=== PATIENT | male | born 1935 | race Caucasian/White ===

== ENCOUNTER 2018-03-09 07:50 | Day surgery (SDC) | payer MEDICARE ==
[~2018-03-09] VITALS: Ht 157.5 cm; Wt 65.8 kg
[~2018-03-09 07:50] MED LIST: BUDESONIDE0.5 MG/2 M INH; IPRAT-ALBUT 0.5-3 ML INH; PEPCID40 MG PO
--- NOTE | 2018-03-09 11:27 | NUR ---
03/09/18 1127 Amy Hatch 1117 PT ARRIVED IN PACU SLEEPY WITH NO C/O'S. ABD SOFT AND PASSING FLATUS. 1125 OXYGEN DECREASED TO 2L VIA NC WITH SATS 95%.
--- NOTE | 2018-03-10 07:25 | OR ---
[facility] [address] [place], [place] [address] Signed DATE OF OPERATION: 03/09/2018 SURGEON: Avery Stallworth MD UPPER AND LOWER ENDOSCOPY REPORTS PREOPERATIVE DIAGNOSES: 1. Hiatal hernia with acid reflux. 2. Recurrent aspiration pneumonia with scarred lung. 3. Esophageal dysphagia. 4. History of peptic ulcer disease. 5. History of diarrhea, black stool. 6. Unspecified cecal mass on CT/PET scan. POSTOPERATIVE DIAGNOSES: 1. Wwsflfcw-lw-gikjj hiatal hernia. 2. Mild diffuse gastritis. 3. A 5 mm polyp, proximal transverse colon. 4. A 4 mm polyps x2, proximal right colon. 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 6. 7 mm polyps x2, mid transverse colon. 7. 5 mm polyps at 45 cm. 8. Pandiverticulosis (left greater than right). PROCEDURES PERFORMED: 1. EGD with CLOtest and biopsies of the duodenum, pyloric bulb, antrum, and GE junction. 2. Colonoscopy with snare polypectomy and hot biopsies. ESTIMATED BLOOD LOSS: None. INDICATIONS: Joshua is an 82-year-old gentleman, who apparently has lived in [place], [facility], and even in [place]. It sounds like over the years, he developed progressive shortness of breath and dyspnea on exertion. There was some consideration for COPD. However, he was found to have a aodyglgt-ue-tynof hiatal hernia. It was felt that he probably is having recurrent aspirations and possibly pneumonia with scarred lung. As a result, his daughter was inquiring about the hiatal hernia and whether it could be surgically repaired. Family is very familiar with Dr. Nikunj Miller at [facility]. Dr. Miller is an expert in his field and has done Electronically Signed By: AVERY STALLWORTH MD 03/10/18 0725 PATIENT NAME: JOSHUA SANDOVAL OPERATIVE REPORT DATE OF : 31 REPORT #: [id number] PHYSICIAN: AVERY STALLWORTH MD PCP: SPIKE REEVES MD REPORT IS CONFIDENTIAL AND NOT TO BE RELEASED WITHOUT AUTHORIZATION [facility] [address] [place], [place] [address] Signed excellent job for a number of our patients. In the meantime, Joshua had a PET scan done by the children's book author for a stable nodule in his lung. In the cecum, there was a 2.2 x 1.5 cm mass that lit up, he was therefore asked to see me as a local General Surgeon for both upper and lower endoscopy. In the office, I met with Joshua and his daughter. Joshua overall was in decent shape, taking all things into consideration and he has moderate functional status. I explained to Joshua I think at our small hospital we could certainly help him with upper and lower endoscopy. I gave him pamphlets on both, and we reviewed that in detail. He understands the nature of the 2 tests along with the risks including, but not limited to gas bloating, crampy abdominal pain, bleeding, perforation, requiring surgery, and missed diagnosis. Also, because of Joshua's advanced age and medical issues, particularly his pulmonary issues. We did ask an Anesthesia provider to help us with increased monitoring and sedation with propofol. They had expressed understanding and wished to proceed. PROCEDURE NOTE: Joshua was taken into our endoscopy suite and placed in the supine semi-recumbent position. He was given monitored anesthesia care with propofol per our nurse mission support specialist. The posterior oropharynx was anesthetized with Hurricaine spray. A bite block was utilized for the case. The adult gastroscope was introduced and advanced out into the third portion of the duodenum under direct visualization of camera. I encountered his hiatal hernia, rather quickly coming down the esophagus and it raises the suspicion of a large hiatal hernia. Because of his history of diarrhea, I took a biopsy out of his duodenum. He had just a little irritation in the pyloric channel and in the stomach itself. Consequently, we took biopsies in both pyloric bulb and antrum. We also took a biopsy of the antrum for CLOtest. Upon retroflexion of the scope, he does have a vxfxumoc-tr-wnbts hiatal hernia. No evidence of any volvulus. There is no gastric or esophageal varices. No ulcerations. I withdrew the scope back into a large hiatal hernia and there was some irritation, but no obvious Laya-Acuna tear or source of bleeding. We did not measure out his hiatal hernia on this occasion. We were having some trouble with quite a bit of secretions and maintaining his airway during the procedure. I can see that his GE junction was mildly disrupted. We went ahead and took a quick biopsy at that area. The middle and upper esophagus were unremarkable. After this, the gas was suctioned out and the gastroscope was removed. Overall, Joshua tolerated the procedure well. Joshua was then rotated into the left lateral decubitus position. He was maintained on IV sedation with propofol per our nurse mission support specialist. A digital rectal exam was performed, this was unremarkable. He has a little induration to his prostate. The one at the left side is a little more prominent than the right. The adult colonoscope was introduced and advanced through a relatively small narrow sigmoid colon and finally arrived into the cecum itself. 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 It was somewhat difficult the biopsy because of the angle. We spent some time there, taking Electronically Signed By: AVERY STALLWORTH MD 03/10/18 2294 PATIENT NAME: JOSHUA SANDOVAL OPERATIVE REPORT DATE OF : 31 REPORT #: [id number] PHYSICIAN: AVERY STALLWORTH MD PCP: SPIKE REEVES MD REPORT IS CONFIDENTIAL AND NOT TO BE RELEASED WITHOUT AUTHORIZATION [facility] [address] [place], [place] [address] Signed several biopsies and several pictures to document his tumor. It is obviously concerning for cancer. He also had various polyps throughout the rest of the colon, we removed those with the help of hot biopsy forceps and snare. We noticed that he had a few diverticula in his right colon, but most of his diverticula were in the left and sigmoid colon; they were moderate in size, moderate in number, and scattered about. The rectum itself was unremarkable. Joshua is a slight of build and I really did not have room enough to retroflex the scope in his small rectum. It looks like he has some routine internal hemorrhoid tissue as the scope was withdrawn. After this, the gas was suctioned out. The colonoscope was removed. Joshua tolerated the procedure quite well. RECOMMENDATIONS: I will see Joshua back in my office in 7 to 14 days to review his results. We will have to talk in detail about the cecal tumor. Avery Stallworth MD ALB/MODL /[id number] cc: MD Avery Cotto MD Malcolm Townsley, MD Copies: TASHIA HAQ MD,SPIKE DC MD, MD ~ Electronically Signed By: AVERY STALLWORTH MD 03/10/18 0725 PATIENT NAME: JOSHUA SANDOVAL OPERATIVE REPORT DATE OF : 31 REPORT #: [id number] PHYSICIAN: AVERY STALLWORTH MD PCP: SPIKE REEVES MD REPORT IS CONFIDENTIAL AND NOT TO BE RELEASED WITHOUT AUTHORIZATION
[2018-03-10] MEDS ORDERED: BROVANA15 MCG/2 M INH (11:38)
== END 2018-03-09 12:00 | disposition home or self-care (01) ==
LOC: OPS 07:50 → DS 07:50 → OPS 08:30
PROVIDERS: Colon & Rectal Surgery
PROC: 0DBE8ZZ Excision of Large Intestine, Via Natural or Artificial Opening Endoscopic (ICD-10-PCS; 2018-03-09)
PROC: 0DBL8ZZ Excision of Transverse Colon, Via Natural or Artificial Opening Endoscopic (ICD-10-PCS; 2018-03-09)
PROC: 0DB98ZX Excision of Duodenum, Via Natural or Artificial Opening Endoscopic, Diagnostic (ICD-10-PCS; 2018-03-09)
PROC: 0DB78ZX Excision of Stomach, Pylorus, Via Natural or Artificial Opening Endoscopic, Diagnostic (ICD-10-PCS; 2018-03-09)
PROC: 0DB48ZX Excision of Esophagogastric Junction, Via Natural or Artificial Opening Endoscopic, Diagnostic (ICD-10-PCS; 2018-03-09)
PROC: 0DBK8ZZ Excision of Ascending Colon, Via Natural or Artificial Opening Endoscopic (ICD-10-PCS; principal; 2018-03-09 09:30)
PROC: 0DBH8ZZ Excision of Cecum, Via Natural or Artificial Opening Endoscopic (ICD-10-PCS; 2018-03-09 09:30)
DX: D12.2 Benign neoplasm of ascending colon (principal); D12.3 Benign neoplasm of transverse colon; D12.6 Benign neoplasm of colon, unspecified; K29.50 Unspecified chronic gastritis without bleeding; K29.80 Duodenitis without bleeding; K57.30 Diverticulosis of large intestine without perforation or abscess without bleeding; K44.9 Diaphragmatic hernia without obstruction or gangrene; I25.10 Atherosclerotic heart disease of native coronary artery without angina pectoris; J44.9 Chronic obstructive pulmonary disease, unspecified; K21.0 Gastro-esophageal reflux disease with esophagitis; F32.9 Major depressive disorder, single episode, unspecified; Z79.899 Other long term (current) drug therapy
CPT/HCPCS: 86677; J2704; J7120

== ENCOUNTER 2018-03-09 14:18 | Observation (INO) | payer MEDICARE ==
[~2018-03-09] VITALS: Ht 157.5 cm; Wt 65.5 kg
--- OUTSIDE RECORDS SUMMARY | ~2018-03-09 | XMS | Clinical Summary ---
Demographics + + + | Address | [address] | | | [place] [address] | + + + | Home Phone | | + + + | Preferred Language | Unknown | + + + | Marital Status | | + + + | Muslim Affiliation | 1001 | + + + | Race | Unknown | + + + | Ethnic Group | Unknown | + + + Author + + + | Author | [facility] | + + + | Organization | [facility] | + + + | Address | Unknown | + + + | Phone | Unavailable | + + + Support + + +---------+ + | Name | Relationship | Address | Phone | + + +---------+ + | Jackie Silva | ECON | Unknown | | + + +---------+ + Care Team Providers + +------+ + | Care Logistics Engineer Name | Role | Phone | + +------+ + | Cy Suarez MD | PP | | + +------+ + Allergies No Known Allergies Current Medications + + + +---------+------+------+-------+ | Prescription | Sig. | Disp. | Refills | Star | End | Statu | | | | | | t | Date | s | | | | | | Date | | | + + + +---------+------+------+-------+ | ascorbic acid | Take 500 mg by mouth | | | | | Activ | | (VITAMIN C) 500 MG | daily. | | | | | e | | tablet | | | | | | | + + + +---------+------+------+-------+ | Licorice, | Take by mouth. | | | | | Activ | | Glycyrrhiza glabra, | | | | | | e | | (LICORICE ROOT PO) | | | | | | | + + + +---------+------+------+-------+ | famotidine | Take 40 mg by mouth | | | | | Activ | | (PEPCID) 40 MG | daily. | | | | | e | | tablet | | | | | | | + + + +---------+------+------+-------+ | DANDELION PO | Take by mouth. | | | | | Activ | | | | | | | | e | + + + +---------+------+------+-------+ | Nebulizer (medical | Please provide | 1 each | 0 | 07/2 | | Activ | | device)Indications: | Nebulizer machine, | | | 0/20 | | e | | COPD, moderate | tubing, and | | | 18 | | | | ([facility]) | mouthpiece. Pls send | | | | | | | | replacement tubing | | | | | | | | every three months. | | | | | | | | Refill for tubing, | | | | | | | | filter and | | | | | | | | mouthpiece #6 | | | | | | + + + +---------+------+------+-------+ | | Take 3 mLs by | 360 mL | 5 | 07/2 | | Activ | | ipratropium-albutero | nebulization every 6 | | | 0/20 | | e | | l (DUO-NEB) 0.5-2.5 | (six) hours as | | | 18 | | | | mg/3mLIndications: | needed (wheezing or | | | | | | | COPD, moderate (HCC) | cough). | | | | | | + + + +---------+------+------+-------+ | arformoterol | Take 2 mLs by | 120 mL | 11 | 07/3 | | Activ | | (BROVANA) 15 MCG/2ML | nebulization 2 (two) | | | 0/20 | | e | | NEBUIndications: | times daily. | | | 18 | | | | COPD, moderate (HCC) | | | | | | | + + + +---------+------+------+-------+ | budesonide | Take 2 mLs by | 120 mL | 5 | 07/3 | 07/3 | Activ | | (PULMICORT) 0.5 | nebulization 2 (two) | | | 0/20 | 0/20 | e | | MG/2ML nebulizer | times daily. | | | 18 | 19 | | | suspensionIndication | | | | | | | | s: COPD, moderate | | | | | | | | (HCC) | | | | | | | + + + +---------+------+------+-------+ | Oxygen (outpatient | Inhale into the | | | | | Activ | | therapy) | lungs. For sleep | | | | | e | | | only | | | | | | + + + +---------+------+------+-------+ Active Problems + + + | Problem | Noted Date | + + + | Nocturnal hypoxemia | 01/17/2018 | + + + | COPD, moderate (HCC) | 01/17/2018 | + + + | Narrowing of airway | 01/17/2018 | + + + | Hiatal hernia | 01/17/2018 | + + + | Pulmonary hypertension (HCC) | 01/17/2018 | + + + | Reactive airway disease | 01/07/2018 | + + + | Shortness of breath | 02/26/2017 | + + + | Wheezing | 02/26/2017 | + + + | Incidental pulmonary nodule, greater than or equal to 8mm | 02/26/2017 | + + + | Asbestos exposure | 02/26/2017 | + + + | Closed fracture of multiple ribs of left side | 10/16/2016 | + + + + + | Overview: Overview: 6-12Last Assessment & Plan: A: | | Left-sided, multiple with probable pulmonary contusion and small | | hemothorax noted on CT of his chest, again on 10/20. Shift Engineer | | did not recommend draining the hemothorax and IR consulted on 10/19 | | and agreed. Patient has declined epidural.P: Continues on | | oxycodone. | + + + + + | Lumbar transverse process fracture, closed, initial encounter | 10/16/2016 | | (BRANDI) | | + + + + + | Overview: Overview: | | Left 1-4, right 1-3 | | | | Last Assessment & Plan: | | A: Traumatic, multiple lumbar transverse process fractures. | | P: In corset, Trauma managing. | + + + + + | Spleen injury | 10/16/2016 | + + + + + | Overview: Overview: Grade ILast Assessment & Plan: A: | | Traumatic, Grade 1, associated with psoas hematoma. P: Repeat CT | | 10/25, pending. Conservative management. Trauma following. | |Last Assessment & Plan: | |A: Traumatic, Grade 1, associated with psoas hematoma. | |P: Repeat CT 10/25, pending. Conservative management. Trauma following. | + + + + + | Cataracts, bilateral | 08/08/2013 | + + + Encounters +--------+ + + + + | Date | Type | Specialty | Care Team | Description | +--------+ + + + + | 02/02/ | Office | | Ruslan, | COPD, moderate (HCC) | | 2018 | Visit | | Candice Han, | (Primary Dx); | | | | | MD | Narrowing of airway; | | | | | | Incidental | | | | | | pulmonary nodule, | | | | | | greater than or | | | | | | equal to 8mm; | | | | | | Asbestos exposure; | | | | | | Nocturnal hypoxemia; | | | | | | Hiatal hernia | +--------+ + + + + | 01/26/ | Telephone | | Verito Oleary RN | | | 2017 | | | | | +--------+ + + + + | 01/25/ | Hospital | | [facility]lan, | Endobronchial mass | | 2018 | Encounter | | Candice Han, | | | | | | MD | | +--------+ + + + + | 01/24/ | Documentati | | Verito Oleary RN | | | 2017 | on Only | | | | +--------+ + + + + | 01/24/ | Telephone | | Verito Oleary RN | | | 2017 | | | | | +--------+ + + + + | 01/18/ | Documentati | | Cristina Starks, | Other (Respiratory | | 2018 | on Only | | DRAMA PROFESSOR | Therapy form) | +--------+ + + + + | 01/17/ | Office | | Ruslan, | COPD, moderate (HCC) | | 2018 | Visit | | Candice Han, | (Primary Dx); | | | | | MD | Endobronchial mass; | | | | | | Narrowing of airway; | | | | | | Incidental | | | | | | pulmonary nodule, | | | | | | greater than or | | | | | | equal to 8mm; | | | | | | Asbestos exposure; | | | | | | Pulmonary | | | | | | hypertension (HCC); | | | | | | Nocturnal hypoxemia; | | | | | | Hiatal hernia | +--------+ + + + + | 01/17/ | Documentati | | Verito Oleary RN | | | 2018 | on Only | | | | +--------+ + + + + | 01/17/ | Documentati | | Cristina Starks, | Other (3 step) | | 2018 | on Only | | DRAMA PROFESSOR | | +--------+ + + + + | 01/11/ | Telephone | | Verito Oleary RN | | | 2018 | | | | | +--------+ + + + + 01/10/ | Hospital | | [facility]lan, | Pulmonary nodule; | | 2018 | Encounter | | Candice Han, | Asbestos exposure | | | | | MD | | +--------+ + + + + | 01/07/ | Office | | [facility]lan, | COPD, moderate (HCC) | | 2018 | Visit | | Candice Han, | (Primary Dx); | | | | | MD | Pulmonary nodule; | | | | | | Asbestos exposure | +--------+ + + + + from Last 3 Months Family History + + +------+ + | Medical History | Relation | Name | Comments | + + +------+ + | Cancer | Mother | | breast | + + +------+ + | Heart disease | Neg Hx | | | + + +------+ + | Stroke | Neg Hx | | | + + +------+ + + +------+--------+ + | Relation | Name | Status | Comments | + +------+--------+ + | Mother | | | | + +------+--------+ + Social History + +-------+ +--------+------+ | Tobacco Use | Types | Packs/Day | Years | Date | | | | | Used | | + +-------+ +--------+------+ | Never Smoker | | | | | + +-------+ +--------+------+ + +---+---+---+ | Smokeless Tobacco: | | | | | Never Used | | | | + +---+---+---+ + + +---------+ + | Alcohol Use | Drinks/We | oz/Week | Comments | | | ek | | | + + +---------+ + | No | | | | + + +---------+ + + + + | Sex Assigned at | Date Recorded | | | | + + + | Not on file | | + + + Last Filed Vital Signs + + + + | Vital Sign | Reading | Time Taken | + + + + | Blood Pressure | 132/73 | 02/02/2018 3:06 PM PDT | + + + + | Pulse | 69 | 02/02/2018 3:06 PM PDT | + + + + | Temperature | 36.4 C (97.5 F) | 02/02/2018 3:06 PM PDT | + + + + | Respiratory Rate | 24 | 02/26/2017 10:20 AM PDT | + + + + | Oxygen Saturation | 96% | 02/02/2018 3:06 PM PDT | + + + + | Inhaled Oxygen | - | - | | Concentration | | | + + + + | Weight | 65.4 kg (144 lb 3.2 | 02/02/2018 3:06 PM PDT | | | oz) | | + + + + | Height | 157.5 cm (5' 2") | 02/02/2018 3:06 PM PDT | + + + + | Body Mass Index | 26.37 | 02/02/2018 3:06 PM PDT | + + + + Plan of Treatment +--------+---------+ + + + | Date | Type | Specialty | Care Team | Description | +--------+---------+ + + + | 04/06/ | Office | | [place]lan, | | | 2018 | Visit | | Candice Han, | | | | | | MD [address] | | | | | | [place] [address] | | | | | | [phone] | | | | | | | | +--------+---------+ + + + + + + + + | Health Maintenance | Due Date | Last Done | Comments | + + + + + | Vaccine: | | | | | Dtap/Tdap/Td (1 - | 3 | | | | Tdap) | | | | + + + + + | Vaccine: Zoster (1 | | | | | of 2) | 4 | | | + + + + + | Vaccine: | | | | | Pneumococcal 65+ | 9 | | | | Low/Medium Risk (1 | | | | | of 2 - PCV13) | | | | + + + + + | Vaccine: Influenza | | | | | (#1) | 8 | | | + + + + + Procedures + +--------+ + + + | Procedure Name | Priori | Date/Time | Associated Diagnosis | Comments | | | ty | | | | + +--------+ + + + | PET CT TUMOR | Routin | 01/25/2018 | Endobronchial mass | Results for this | | LOCALIZATION INITIAL | e | 12:25 PM | | procedure are in the | | - [facility] | | PDT | | results section. | + +--------+ + + + | POCT GLUCOSE | Routin | 01/25/2018 | | Results for this | | | e | 10:34 AM | | procedure are in the | | | | PDT | | results section. | + +--------+ + + + | CT CHEST WO CONTRAST | STAT | 01/10/2018 | Pulmonary nodule | Results for this | | | | 4:40 PM | Asbestos exposure | procedure are in the | | | | PDT | | results section. | + +--------+ + + + from Last 3 Months Results PET Initial [facility] (01/25/2018 12:25 PM) + + + | Impressions | Performed At | + + + | 1. 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 | [facility] | | 2. The suspected focal narrowing at the origin of the right upper | RADIOLOGY | | lobe bronchus is not well-defined on CT images, without associated | | | focal uptake. 3. Partially calcified/calcified hilar, mediastinal, | | | distal periesophageal lymph nodes, with variable uptake throughout | | | the hilar mediastinal regions, SUV up to 11.0 in the right hilum. This | | | is probably related to granulomatous disease. The uptake is not | | | specific. Correlate clinically. 4. Focal intense uptake in the | | | posterior cecum measuring 2.2 x 1.5 cm, suspicious for cecal neoplasm. | | | Colonoscopy is recommended. 5. Subtle left pleural effusion. | | | 6. Moderate hiatal hernia. | | + + + + + + | Narrative | Performed At | + + + | [facility] 1935 01/25/2018 12:[address] TUMOR | [facility] | | LOCALIZATION INITIAL - [facility] HISTORY: Endobronchial mass. | RADIOLOGY | | COMPARISON: CT chest 01/10/18, 03/05/17 TECHNIQUE: Serum blood | | | sugar 84 mg/dL. Fused PET/CT scans were obtained from the skull | | | base through the thighs at 71 minutes post injection of 12.7 | | | millicuries F18 fluorodeoxyglucose. CT images are for localization | | | only, and not for diagnostic purposes. FINDINGS: Collapse of the | | | right middle lobe again noted. No associated abnormal uptake. The | | | suspected narrowing of the right upper lobe bronchus origin sequence 4 | | | image 83 shows no defined focal associated uptake, but with adjacent | | | uptake in hilar and mediastinal lymph nodes. Mild uptake | | | throughout the hilar and mediastinal regions with associated partially | | | calcified lymph nodes, for example: 1. Subcarinal lymph node with | | | central maryam-like calcification image 86 sequence 4 measuring 1.7 x | | | 0.9 cm, SUV 9.7. 2. Left inferior left mainstem densely calcified | | | lymph node measuring 1.7 x 1.0 cm image 87, without uptake. | | | 3. Left prevascular lymph node image 82 measuring 2.4 x 1.1 cm with | | | central maryam-like and 8mm nodular calcification, SUV 8.0. | | | 4. Right precarinal centrally calcified lymph node image 82 | | | measuring 2.0 x 1.3 cm, SUV 6.9. 5. Left hilar partially calcified | | | lymph nodes, poorly defined on CT, SUV up to 8.1. 6. Right hilar | | | predominately noncalcified lymph nodes, with most intense uptake just | | | inferior to the right upper lobe lesion, SUV 11.0, measuring 2.0 cm AP | | | by 1.2 cm transverse on the PET scan. 7. AP window lymph node | | | sequence 4 image 79 measuring 1.5 x 0.7 cm, noncalcified, SUV 8.3. | | | Subtle left pleural effusion without uptake. Minimal dependent | | | density in the posterior aspects of both upper lobes. Calcified distal | | | periesophageal lymph nodes above the GE junction without uptake for | | | example sequence 4 image 111 measuring 7 x 5 mm, image 114 measuring 4 | | | x 3 mm. Small to moderate hiatal hernia. No abnormal uptake in | | | the abdomen. Nodular intense uptake in the cecum posteriorly | | | measuring 2.2 x 1.5 cm sequence 3 image 177, probably with associated | | | wall thickening of the posterior cecum on CT. Colonoscopy is | | | recommended to exclude colonic neoplasm at the cecal apex. There are a | | | few right lower quadrant mesenteric lymph nodes, all measuring less | | | than 5 mm, without uptake. Advanced sigmoid diverticulosis and | | | mild descending colonic diverticulosis with scattered uptake. Bone | | | windows show mild spondylotic changes of the spine. Moderately | | | advanced bilateral glenohumeral degenerative change with only mild | | | uptake. | | + + + + + | Procedure Note | + + | Kingston, Leonardo Results In - 01/25/2018 1:09 PM PDT JOSH [id number]/12/2017 12:25 | | PMPET CT TUMOR LOCALIZATION INITIAL - TORSOHISTORY: Endobronchial mass.COMPARISON: CT | | chest 01/10/18, 03/05/17TECHNIQUE:Serum blood sugar 84 mg/dL. Fused PET/CT scans were | | obtained from the skull base through the thighs at 71 minutes post injection of 12.7 | | millicuries F18 fluorodeoxyglucose. CT images are for localization only, and not for | | diagnostic purposes.FINDINGS:Collapse of the right middle lobe again noted. No | | associated abnormal uptake.The suspected narrowing of the right upper lobe bronchus | | origin sequence 4 image 83 shows no defined focal associated uptake, but with adjacent | | uptake in hilar and mediastinal lymph nodes.Mild uptake throughout the hilar and | | mediastinal regions with associated partially calcified lymph nodes, for example:1. | | Subcarinal lymph node with central maryam-like calcification image 86 sequence 4 | | measuring 1.7 x 0.9 cm, SUV 9.7.2. Left inferior left mainstem densely calcified lymph | | node measuring 1.7 x 1.0 cm image 87, without uptake.3. Left prevascular lymph node | | image 82 measuring 2.4 x 1.1 cm with central maryam-like and 8mm nodular calcification, | | SUV 8.0.4. Right precarinal centrally calcified lymph node image 82 measuring 2.0 x 1.3 | | cm, SUV 6.9.5. Left hilar partially calcified lymph nodes, poorly defined on CT, SUV | | up to 8.1.6. Right hilar predominately noncalcified lymph nodes, with most intense | | uptake just inferior to the right upper lobe lesion, SUV 11.0, measuring 2.0 cm AP by | | 1.2 cm transverse on the PET scan.7. AP window lymph node sequence 4 image 79 measuring | | 1.5 x 0.7 cm, noncalcified, SUV 8.3.Subtle left pleural effusion without uptake. | | Minimal dependent density in the posterior aspects of both upper lobes. Calcified distal | | periesophageal lymph nodes above the GE junction without uptake for example sequence 4 | | image 111 measuring 7 x 5 mm, image 114 measuring 4 x 3 mm.Small to moderate hiatal | | hernia. No abnormal uptake in the abdomen.Nodular intense uptake in the cecum | | posteriorly measuring 2.2 x 1.5 cm sequence 3 image 177, probably with associated wall | | thickening of the posterior cecum on CT. Colonoscopy is recommended to exclude colonic | | neoplasm at the cecal apex. There are a few right lower quadrant mesenteric lymph nodes, | | all measuring less than 5 mm, without uptake.Advanced sigmoid diverticulosis and mild | | descending colonic diverticulosis with scattered uptake.Bone windows show mild | | spondylotic changes of the spine. Moderately advanced bilateral glenohumeral | | degenerative change with only mild uptake.IMPRESSION:1. Chronic collapse of the right | | middle lobe without uptake.2. The suspected focal narrowing at the origin of the right | | upper lobe bronchus is not well-defined on CT images, without associated focal uptake.3. | | Partially calcified/calcified hilar, mediastinal, distal periesophageal lymph nodes, | | with variable uptake throughout the hilar mediastinal regions, SUV up to 11.0 in the | | right hilum. This is probably related to granulomatous disease. The uptake is not | | specific. Correlate clinically.4. Focal intense uptake in the posterior cecum measuring | | 2.2 x 1.5 cm, suspicious for cecal neoplasm. Colonoscopy is recommended.5. Subtle left | | pleural effusion.6. Moderate hiatal hernia. | |2. The suspected focal narrowing at the origin of the right upper lobe bronchus is not wel l-defined on CT images, without associated focal uptake. | |3. Partially calcified/calcified hilar, mediastinal, distal periesophageal lymph nodes, wi th variable uptake throughout the hilar mediastinal regions, SUV up to 11.0 in the right hil um. This is probably | |related to granulomatous disease. The uptake is not specific. Correlate clinically. | |4. Focal intense uptake in the posterior cecum measuring 2.2 x 1.5 cm, suspicious for ceca l neoplasm. Colonoscopy is recommended. | |5. Subtle left pleural effusion. | |6. Moderate hiatal hernia. | | | | | + + + + + + + | Performing | Address | City/State/Zipcode | Phone Number | | Organization | | | | + + + + + | [facility] | [address] | [place] [address] | | + + + + + POCT glucose (01/25/2018 10:34 AM) + + + + + | Component | Value | Ref Range | Performed At | + + + + + | GLUCOSE,POC SCREEN | 84Comment: Testing | 65 - 99 mg/dL | [facility] | | | performed at [facility];[address] | | | | [address];[place] | | | | | [address] | | | + + + + + + + + + + | Performing | Address | City/State/Zipcode | Phone Number | | Organization | | | | + + + + + | [facility] | [address] | [place] [address] | | + + + + + CT chest without contrast (01/10/2018 4:40 PM) + + + | Impressions | Performed At | + + + | 1. Right upper lobe pulmonary nodule measuring approximately 8 x | [facility] | | 7 mm, similar to CT dated 03/05/2017. Given presence of small | RADIOLOGY | | calcifications, this could represent granuloma or hamartoma. Recommend | | | attention on follow-up chest CT scan in 9-12 months. 2. Chronic | | | collapse of the right middle lobe with occlusion of right middle lobe | | | bronchus, similar to prior CT. Similar narrowing of right upper lobe | | | bronchus. Recommend bronchoscopy for further evaluation. | | | 3. Enlarged pulmonary trunk suggesting pulmonary artery | | | hypertension. 4. Multiple calcified mediastinal lymph nodes, | | | likely sequel of remote granulomatous disease. 5. Sclerotic lesion | | | in left seventh rib measuring 10 x 7 mm, similar to prior CT. | | | 6. Moderate coronary artery atherosclerosis. 7. Large hiatal | | | hernia. 8. Additional incidental findings as detailed above. | | | | | + + + + + + | Narrative | Performed At | + + + | JOSH MATTHEWS CT CHEST WO CONTRAST 01/10/2018 4:40 PM HISTORY: | [facility] | | 82 years. Male. Follow-up pulmonary nodule. TECHNIQUE: | RADIOLOGY | | 5-mm axial images were acquired through the chest without | | | contrast. Axial 5 mm reconstructions with a lung algorithm, axial | | | 1.25 mm reconstructions, coronal 2 mm reconstructions and axial 8 mm | | | MIP reconstructions were performed. Dose reduction techniques were | | | used including automated exposure control (AEC), iterative | | | reconstruction technique, and/or mA and/or kV dose adjustments based | | | on patient size. COMPARISON: 03/05/2017. Limitations: | | | Respiratory motion artifacts. FINDINGS: Normal thyroid. | | | Left-sided 3 vessel aortic arch. Aortic atherosclerosis including | | | atherosclerosis of major branch vessels. Moderate coronary artery | | | atherosclerosis. The maximum diameter of face and thoracic aorta | | | measures approximately 3.6 cm The pulmonary trunk measures | | | approximately 3 cm. Multiple calcified mediastinal and bilateral | | | hilar lymph nodes, probable sequel of remote 10 mm disease. Right | | | upper lobe pulmonary nodule measuring approximately 8 x 7 mm, image | | | 40/series 3 with small punctate calcifications, similar to CT dated | | | 03/05/2017. Right upper lobe pulmonary nodule measuring approximately 3 | | | mm, which 139/series 4, similar to prior CT. Calcified right lower | | | lobe pulmonary nodule abutting major fissure measuring approximately 5 | | | mm, image 101/series 4, similar to prior CT. Assessment limited | | | secondary to severe motion artifacts. Multiple additional small 2 to 3 | | | mm bilateral pulmonary nodules. Linear subsegmental | | | atelectasis or scarring in both lungs. There is narrowing of right | | | upper lobe bronchus, image 96/series 4, similar to prior CT. Chronic | | | complete collapse of the right middle lobe with occlusion of the right | | | middle lobe bronchus, similar to CT dated 03/05/2017. No pleural | | | effusion or pneumothorax. Osteopenia. 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 Osteopenia. | | | Thoracic spondylosis. Mild (2 mm) retrolisthesis of C6 on C7. Mild (2 | | | mm) anterolisthesis of C7 on T1. Multiple remote left rib fractures. | | | Sclerotic lesion in left seventh rib measuring approximately 10 x 7 | | | mm, image 75/series 3, similar to CT dated 03/05/2017. Large | | | hiatal hernia. Colonic diverticulosis. An exophytic hypodense lesion | | | arising from upper pole of the right kidney measuring approximately 8 | | | mm, image 215/series 4, incompletely characterized, similar to CT | | | dated 03/05/2017. | | + + + + + | Procedure Note | + + | Kingston, Rad Results In - 01/10/2018 5:05 PM PDT J[facility] GANDARA CHEST WO | | CONTRAST01/10/2018 4:40 PMHISTORY:82 years. Male. Follow-up pulmonary | | nodule.TECHNIQUE:5-mm axial images were acquired through the chest without contrast. | | Axial 5 mm reconstructions with a lung algorithm, axial 1.25 mm reconstructions, coronal | | 2 mm reconstructions and axial 8 mm MIP reconstructions were performed.Dose reduction | | techniques were used including automated exposure control (AEC), iterative | | reconstruction technique, and/or mA and/or kV dose adjustments based on patient | | size.COMPARISON:03/05/2017.Limitations: Respiratory motion artifacts.FINDINGS:Normal | | thyroid.Left-sided 3 vessel aortic arch. Aortic atherosclerosis including | | atherosclerosis of major branch vessels. Moderate coronary artery atherosclerosis. The | | maximum diameter of face and thoracic aorta measures approximately 3.6 cmThe pulmonary | | trunk measures approximately 3 cm.Multiple calcified mediastinal and bilateral hilar | | lymph nodes, probable sequel of remote 10 mm disease.Right upper lobe pulmonary nodule | | measuring approximately 8 x 7 mm, image 40/series 3 with small punctate calcifications, | | similar to CT dated 03/05/2017. Right upper lobe pulmonary nodule measuring approximately | | 3 mm, which 139/series 4, similar to prior CT. Calcified right lower lobe pulmonary | | nodule abutting major fissure measuring approximately 5 mm, image 101/series 4, similar | | to prior CT. Assessment limited secondary to severe motion artifacts. Multiple | | additional small 2 to 3 mm bilateral pulmonary nodules.Linear subsegmental atelectasis | | or scarring in both lungs. There is narrowing of right upper lobe bronchus, image | | 96/series 4, similar to prior CT. Chronic complete collapse of the right middle lobe | | with occlusion of the right middle lobe bronchus, similar to CT dated 03/05/2017.No | | pleural effusion or pneumothorax.Osteopenia. Severe bilateral glenohumeral | | osteoarthritis, right greater than left. Osteopenia. Thoracic spondylosis. Mild (2 mm) | | retrolisthesis of C6 on C7. Mild (2 mm) anterolisthesis of C7 on T1. Multiple remote | | left rib fractures.Sclerotic lesion in left seventh rib measuring approximately 10 x 7 | | mm, image 75/series 3, similar to CT dated 03/05/2017.Large hiatal hernia. Colonic | | diverticulosis. An exophytic hypodense lesion arising from upper pole of the right | | kidney measuring approximately 8 mm, image 215/series 4, incompletely characterized, | | similar to CT dated 03/05/2017.IMPRESSION:1. Right upper lobe pulmonary nodule measuring | | approximately 8 x 7 mm, similar to CT dated 03/05/2017. Given presence of small | | calcifications, this could represent granuloma or hamartoma. Recommend attention on | | follow-up chest CT scan in 9-12 months.2. 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 Similar narrowing of | | right upper lobe bronchus. Recommend bronchoscopy for further evaluation.3. Enlarged | | pulmonary trunk suggesting pulmonary artery hypertension.4. Multiple calcified | | mediastinal lymph nodes, likely sequel of remote granulomatous disease.5. Sclerotic | | lesion in left seventh rib measuring 10 x 7 mm, similar to prior CT.6. Moderate | | coronary artery atherosclerosis.7. Large hiatal hernia.8. Additional incidental | | findings as detailed above. | | PM | |Large hiatal hernia. Colonic diverticulosis. An exophytic hypodense lesion arising from upp er pole of the right kidney measuring approximately 8 mm, image 215/series 4, incompletely c haracterized, similar to CT dated 03/05/2017. | | | |IMPRESSION: | |1. Right upper lobe pulmonary nodule measuring approximately 8 x 7 mm, similar to CT dated 03/05/2017. Given presence of small calcifications, this could represent granuloma or hamart magda. Recommend attention on follow-up chest CT scan in 9-12 months. | |2. 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 Similar narrowing of right upper lobe bronchus. Recommend bronchoscopy for further evaluation. | |3. Enlarged pulmonary trunk suggesting pulmonary artery hypertension. | |4. Multiple calcified mediastinal lymph nodes, likely sequel of remote granulomatous disea se. | |5. Sclerotic lesion in left seventh rib measuring 10 x 7 mm, similar to prior CT. | |6. Moderate coronary artery atherosclerosis. | |7. Large hiatal hernia. | |8. Additional incidental findings as detailed above. | | | | | + + + + + + + | Performing | Address | City/State/Zipcode | Phone Number | | Organization | | | | + + + + + | [facility] | [address] | [place] [address] | | + + + + + from Last 3 Months Insurance + +--------+ +------+-------+ + | Payer | Benefi | Subscriber | Type | Phone | Address | | | t Plan | ID | | | | | | / | | | | | | | Group | | | | | + +--------+ +------+-------+ + | MEDICARE | MEDICA | [id number] | | | [address] | | | RE | | | | [place] [phone] | | | IP-OP | | | | | + +--------+ +------+-------+ + | [facility] | UNITED | [id number] | | | | | | | | | | | | | HEALTH | | | | | | | CARE - | | | | | | | AARP | | | | | + +--------+ +------+-------+ + + +--------+ +--------+ + + | Guarantor Name | Accoun | Relation to | Date | Phone | Billing Address | | | t Type | Patient | of | | | | | | | | | | + +--------+ +--------+ + + | JOSH MATTHEWS | Person | Self | [birth year] | Home: | [address] | | | al/Fam | | 1936 | [phone] | [place] [address] | | | mireya | | | [phone] | | + +--------+ +--------+ + +
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
--- OUTSIDE RECORDS SUMMARY | ~2018-03-09 | XMS | Encounter Summary ---
Demographics + + + | Address | [address] | | | [place] [address] | + + + | Home Phone | | + + + | Preferred Language | Unknown | + + + | Marital Status | | + + + | Synagogue Affiliation | 1001 | + + + | Race | Unknown | + + + | Ethnic Group | Unknown | + + + Author + + + | Author | [employer] [employer] | + + + | Organization [...] Team Providers + +------+ + | Care Repacker Name | Role | Phone | + [...] | Radiology | Diagnoses | Ruslan, | [facility] | | | | | | Candice | Nuclear | | | | | Endobronchia | MD Emely | Medicine [address] | | | | | l mass | [address] | [address] | | | | | Procedures | [address] | [address] | | | | | PET Initial | [place], | [place], [place] | | | | | [place] [facility] | [place] [address] | [address] Phone: | | | | | | Phone: | [phone] | | | | | | [phone] | Fax: | | | | | | Fax: | [phone] | | | | | | [phone] | | +--------+--------+ + + + + PET (Routine) +--------+--------+ + + + + | Status | Reason | Specialty | Diagnoses / | Referred By | Referred To | | | | | Procedures | Contact | Contact | +--------+--------+ + + + + | Closed | | Radiology | Diagnoses | Ruslan, | [facility] | | | | | | Candice | Nuclear | | | | | Endobronchia | MD Emely | Medicine [address] | | | | | l mass | [address] | [address] | | | | | Procedures | [address] | [address] | | | | | PET Initial | [place], | [place], [place] | | | | | [place] [facility] | [place] [address] | [address] Phone: | | | | | | Phone: | [phone] | | | | | | [phone] | Fax: | | | | | | Fax: | [phone] | | | | | | [phone] | | +--------+--------+ + + + + Reason for Visit PET (Routine) +--------+--------+ + + + + | Status | Reason | Specialty | Diagnoses / | Referred By | Referred To | | | | | Procedures | Contact | Contact | +--------+--------+ + + + + | Closed | | Radiology | Diagnoses | Ruslan, | [facility] | | | | | | Candice | Nuclear | | | | | Endobronchia | MD Emely | Medicine [address] | | | | | l mass | [address] | [address] | | | | | Procedures | [address] | [address] | | | | | PET Initial | [place], | [place], [place] | | | | | [place] [facility] | [place] [address] | [address] Phone: | | | | | | Phone: | [phone] | | | | | | [phone] | Fax: | | | | | | Fax: | [phone] | | | | | | [phone] | | +--------+--------+ + + + + Encounter Details +--------+ + + + + | Date | Type | Department | Care Team | Description | +--------+ + + + + | 01/25/ | Hospital | [facility] | Ruslan, | Endobronchial mass | | 2018 | Encounter | [facility] | Candice Han, | | | | | Nuclear Medicine | [address] | | | | | [address] | [place] [address] | | | | | [address] [place], | [phone] | | | | | [place] [address] | | | | | | [phone] | | | +--------+ + + + + Social History + +-------+ [...] + + + as of this encounter Medications at Time of Discharge + + + +---------+ + + | Medication | Sig. | Disp. | Refills | Start | End Date | | | | | | Date | | + + + +---------+ + + | arformoterol | Take 2 mLs by | 120 mL | 11 | 01/18/20 | | | (BROVANA) 15 MCG/2ML | nebulization 2 (two) | | | 18 | | | NEBUIndications: | times daily. | | | | | | COPD, moderate ([facility]) | | | | | | + + + +---------+ + + | ascorbic acid | Take 500 mg by mouth | | | | | | (VITAMIN C) 500 MG | daily. | | | | | | tablet | | | | | | + + + +---------+ + + | budesonide | Take 2 mLs by | 120 mL | 5 | 01/18/20 | | | (PULMICORT) 0.5 | nebulization 2 (two) | | | 18 | 9 | | MG/2ML nebulizer | times daily. | | | | | | suspensionIndication | | | | | | | s: COPD, moderate | | | | | | | (HCC) | | | | | | + + + +---------+ + + | DANDELION PO | Take by mouth. | | | | | + + + +---------+ + + | famotidine | Take 40 mg by mouth | | | | | | (PEPCID) 40 MG | daily. | | | | | | tablet | | | | | | + + + +---------+ + + | | Take 3 mLs by | 360 mL | 5 | 07/20/20 | | | ipratropium-albutero | nebulization every 6 | | | 18 | | | l (DUO-NEB) 0.5-2.5 | (six) hours as | | | | | | mg/3mLIndications: | needed (wheezing or | | | | | | COPD, moderate (HCC) | cough). | | | | | + + + +---------+ + + | Licorice, | Take by mouth. | | | | | | Glycyrrhiza glabra, | | | | | | | (LICORICE ROOT PO) | | | | | | + + + +---------+ + + | Nebulizer (medical | Please provide | 1 each | 0 | 01/08/20 | | | device)Indications: | Nebulizer machine, | | | 18 | | | COPD, moderate | tubing, and | | | | | | (HCC) | mouthpiece. Pls send | | | | | | | replacement tubing | | | | | | | every three months. | | | | | | | Refill for tubing, | | | | | | | filter and | | | | | | | mouthpiece #6 | | | | | + + + +---------+ + + as of this encounter Plan of Treatment +--------+---------+ + + + | Date | Type | Specialty | Care Team | Description | +--------+---------+ + + + | 04/06/ | Office | Pulmonology | Ruslan, | | | 2018 | Visit | | Candice Han, | | | | | | [address] | | | | | | [place] [address] | | | | | | [phone] | | | | | | | | +--------+---------+ + + + as of this encounter Procedures + +--------+ + + + | [...] section. | + +--------+ + + + in this encounter Results PET Initial [facility] [facility] [...] Performed At | + + + | JOSHUA MATTHEWS 1935 01/25/2018 12:[address] [...] Results In - 01/25/2018 1:09 PM PDT JOSHUA Waters [id number] 12:25 | | PMPET CT TUMOR LOCALIZATION [...] | + + + + + | [facility] | [address] | [place] [address] | | + + + + + POCT glucose (01/25/2018 10:34 AM) + + + + + | Component | Value | Ref Range | Performed At | + + + + + | GLUCOSE,POC SCREEN | 84Comment: Testing | 65 - 99 mg/dL | [facility] | | | performed at [facility];[address] | | | | | [address];[place] | | | | | [address] | | | + + + + + + + + + + | Performing | Address | City/State/Zipcode | Phone Number | | Organization | | | | + + + + + | [facility] | [address] | [place] [address] | | + + + + + in this encounter Visit Diagnoses + + | Diagnosis | + + | Endobronchial mass | + + | Swelling, mass, or lump in chest | + + Admitting Diagnoses + + | Diagnosis | + + | Endobronchial mass | + + | Swelling, mass, or lump in chest | + +"
--- OUTSIDE RECORDS SUMMARY | ~2018-03-09 | XMS | Encounter Summary ---
Demographics + + + | Address | [address] | | | [place] [address] | + + + | Home Phone | | + + + | Preferred Language | Unknown | + + + | Marital Status | | + + + | Jainism Affiliation | 1001 | + + + | Race | Unknown | + + + | Ethnic Group | Unknown | + + + Author + + + | Author | [employer] [employer] | + + + | Organization [...] Team Providers + +------+ + | Care Continuous Dryout Operator Helper Name | Role | Phone | + +------+ + | Cy Suarez MD | PCP | | + +------+ + Encounter Details +--------+ + + + + | Date | Type | Department | Care Team | Description | +--------+ + + + + | 01/24/ | Telephone | [facility] | Verito Oleary RN | | | 2017 | | Pulmonology [address] | | | | | | [address] | | | | | | [place] | | | | | | [address] | | | | | | [phone] | | | +--------+ + + + [...] + + + as of this encounter Plan of Treatment +--------+---------+ + + + | Date | Type | Specialty | Care Team | Description | +--------+---------+ + + + | 04/06/ | Office | Pulmonology | Ruslan, | | | 2017 | Visit | | Candice Han, | | | | | | MD [address] | | | | | | [facility] [address] | | | | | | [phone] | | | | | | | | +--------+---------+ + + + as of this encounter Visit Diagnoses Not on filein this encounter"
--- OUTSIDE RECORDS SUMMARY | ~2018-03-09 | XMS | Encounter Summary ---
Demographics + + + | Address | [address] | | | [place] [address] | + + + | Home Phone | | + + + | Preferred Language | Unknown | + + + | Marital Status | | + + + | Yazdanism Affiliation | 1001 | + + + | Race | Unknown | + + + | Ethnic Group | Unknown | + + + Author + + + | Author | [employer] [email or web address] | + + + | Organization [...] Team Providers + +------+ + | Care Support Merchandiser Name | Role | Phone | + +------+ + | Cy Suarez MD | PCP | | + +------+ + Reason for Visit +--------+ + | Reason | Comments | +--------+ + | Other | 3 step | +--------+ + Encounter Details +--------+ + + + + | Date | Type | Department | Care Team | Description | +--------+ + + + + | 01/17/ | Documentati | [facility] | Cristina Starks, | Other (3 step) | | 2018 | on Only | Pulmonology [address] | [place] | | | | | [address] | | | | | | [place] | | | | | | [address] | | | | | | [phone] | | | +--------+ + + + [...] + + + as of this encounter Progress Notes Cristina Starks CMA - 01/17/2018 12:37 PM PDT3 step testing Oximetry Exercise (code) 74352 1. At rest on room air: Time:12:30 Heart rate:78 Oxygen saturations:97 2. At exercise on room air: Time:12:33 Heart rate:104 Oxygen saturations:96 3. At exercise with oxygen: Time: Heart rate: Oxygen Saturations: Liters per minute:in this encounter Plan of Treatment +--------+---------+ + + + | Date | Type | Specialty | Care Team | Description | +--------+---------+ + + + | 04/06/ | Office | Pulmonology | Ruslan, | | | 2017 | Visit | | Candice Han, | | | | | | MD [address] | | | | | | [place] [address] | | | | | | [phone] | | | | | | | | +--------+---------+ + + + as of this encounter Visit Diagnoses Not on filein this encounter"
--- OUTSIDE RECORDS SUMMARY | ~2018-03-09 | XMS | Encounter Summary ---
Demographics + + + | Address | [address] | | | [place] [address] | + + + | Home Phone | | + + + | Preferred Language | Unknown | + + + | Marital Status | | + + + | Anabaptism Affiliation | 1001 | + + + | Race | Unknown | + + + | Ethnic Group | Unknown | + + + Author + + + | Author | [employer] [employer] | + + + | Organization [...] Team Providers + +------+ + | Care Tree Puller Name | Role | Phone | + +------+ + | Cy Suarez MD | PCP | | + +------+ + Encounter Details +--------+ + + + + | Date | Type | Department | Care Team | Description | +--------+ + + + + | 01/11/ | Telephone | [facility] | Verito Oleary RN | | | 2017 | | Pulmonology [address] | | | | | | [address] | | | | | | [place] | | | | | | [address] | | | | | | [phone] | | | +--------+ + + + [...] | | | | | | MD [address] | | | | | | [facility] [address] | | | | | | [phone] | | | | | | | | +--------+---------+ + + + as of this encounter Visit Diagnoses Not on filein this encounter"
--- OUTSIDE RECORDS SUMMARY | ~2018-03-09 | XMS | Encounter Summary ---
Demographics + + + | Address | [address] | | | [place] [address] | + + + | Home Phone | | + + + | Preferred Language | Unknown | + + + | Marital Status | | + + + | Spiritism Affiliation | 1001 | + + + | Race | Unknown | + + + | Ethnic Group | Unknown | + + + Author + + + | Author | [facility] [employer] | + + + | Organization [...] Team Providers + +------+ + | Care Channeler Insole Name | Role | Phone | + [...] + + | 01/17/ | Documentati | [facility] | Cristina Starks, | Other (3 step) | | 2018 | on Only | Pulmonology [address] | [place] | | | | | [address] | | | | | | [place] | | | | | | [address] | | | | | | [phone] | | | +--------+ + + + [...] PM PDT3 step testing Oximetry Exercise (code) 53938 1. At rest on room air: Time:12:30 [...] Dr | | | | | | [place] [address] | | | | | | [phone] | | | | | | | | +--------+---------+ + + + as of this encounter Visit Diagnoses Not on filein this encounter"
--- OUTSIDE RECORDS SUMMARY | ~2018-03-09 | XMS | Encounter Summary ---
Demographics + + + | Address | [address] | | | [place] [address] | + + + | Home Phone | | + + + | Preferred Language | Unknown | + + + | Marital Status | | + + + | Catholic Affiliation | 1001 | + + + | Race | Unknown | + + + | Ethnic Group | Unknown | + + + Author + + + | Author | [employer] [employer] | + + + | Organization [...] Team Providers + +------+ + | Care Multimedia Project Manager Name | Role | Phone | + +------+ + | Cy Suarez MD | PCP | | + +------+ + Encounter Details +--------+ + + + + | Date | Type | Department | Care Team | Description | +--------+ + + + + | 01/26/ | Telephone | [facility] | Verito Oleary RN | | | 2017 | | Pulmonology [address] | | | | | | [address] | | | | | | [place] | | | | | | [address] | | | | | | [phone] | | | +--------+ + + + [...] Dr | | | | | | [facility] [address] | | | | | | [phone] | | | | | | | | +--------+---------+ + + + as of this encounter Visit Diagnoses Not on filein this encounter"
--- OUTSIDE RECORDS SUMMARY | ~2018-03-09 | XMS | Encounter Summary ---
Demographics + + + | Address | [address] | | | [place] [address] | + + + | Home Phone | | + + + | Preferred Language | Unknown | + + + | Marital Status | | + + + | Samaritan Affiliation | 1001 | + + + | Race | Unknown | + + + | Ethnic Group | Unknown | + + + Author + + + | Author | [employer] | + + + | Organization [...] Team Providers + +------+ + | Care Art Instructor Name | Role | Phone | + +------+ + | Cy Suarez MD | PCP | | + +------+ + Encounter Details +--------+ + + + + | Date | Type | Department | Care Team | Description | +--------+ + + + + | 01/17/ | Documentati | [facility] | Verito Oleary RN | | | 2018 | on Only | Pulmonology [address] | | | | | | [address] | | | | | | [place] | | | | | | [address] | | | | | | [phone] | | | +--------+ + + + [...] + as of this encounter Progress Notes Verito Oleary RN - 01/17/2018 4:47 PM PDTFaxed progress notes and order for overnight oxim etry testing to in home medical. Received confirmation of receipt of fax. Will send to makeda garzon for scanning. in this encounter Plan of Treatment +--------+---------+ + + + | Date | Type | Specialty | Care Team | Description | +--------+---------+ + + + | 04/06/ | Office | Pulmonology | Ruslan, | | | 2017 | Visit | | Candice Han, | | | | | | MD [address] | | | | | | [place] [address] | | | | | | [phone] | | | | | | | | +--------+---------+ + + + as of this encounter Visit Diagnoses Not on filein this encounter"
--- OUTSIDE RECORDS SUMMARY | ~2018-03-09 | XMS | Encounter Summary ---
Demographics + + + | Address | [address] | | | [place] [address] | + + + | Home Phone | | + + + | Preferred Language | Unknown | + + + | Marital Status | | + + + | Religion Affiliation | 1001 | + + + | Race | Unknown | + + + | Ethnic Group | Unknown | + + + Author + + + | Author | [facility] [employer] | + + + | Organization [...] Team Providers + +------+ + | Care Blast Furnace Supervisor Name | Role | Phone | + +------+ + | Cy Suarez MD | PCP | | + +------+ + Encounter Details +--------+ + + + + | Date | Type | Department | Care Team | Description | +--------+ + + + + | 01/11/ | Telephone | [facility] | Verito Oleary RN | | | 2017 | | Pulmonology [address] | | | | | | [address] | | | | | | [place] | | | | | | [address] | | | | | | [phone] | | | +--------+ + + + [...] | 04/06/ | Office | Pulmonology | uRslan, | | | 2017 | Visit | | Candice Han, | | | | | | MD [address] | | | | | | [facility] [address] | | | | | | [phone] | | | | | | | | +--------+---------+ + + + as of this encounter Visit Diagnoses Not on filein this encounter"
--- OUTSIDE RECORDS SUMMARY | ~2018-03-09 | XMS | Encounter Summary ---
Demographics + + + | Address | [address] | | | [place] [address] | + + + | Home Phone | | + + + | Preferred Language | Unknown | + + + | Marital Status | | + + + | Mormonism Affiliation | 1001 | + + + | Race | Unknown | + + + | Ethnic Group | Unknown | + + + Author + + + | Author | [employer] [employer] | + + + | Organization [...] Team Providers + +------+ + | Care Informaticist Name | Role | Phone | + [...] | Radiology | Diagnoses | Ruslan, | [facility] | | | | | | Candice | Nuclear | | | | | Endobronchia | MD Emely | Medicine [address] | | | | | [address] | [address] | [address] | | | | | Procedures | [address] | [address] | | | | | PET Initial | [place], | [place], [place] | | | | | [place] [facility] | [place] [address] | [address] Phone: | | | | | | Phone: | [phone] | | | | | | [phone] | Fax: | | | | | | Fax: | [phone] | | | | | | [phone] | | +--------+--------+ + + + + [...] | | | | | [place], | [place], [place] | | | | | | [place] [address] | [address] Phone: | | | | | | Phone: | [phone] | | | | | | [phone] | Fax: | | | | | | Fax: | [phone] | | | | | | [phone] | | + +--------+ + + + + Encounter Details +--------+---------+ + + + | Date | Type | Department | Care Team | Description | +--------+---------+ + + + | 01/17/ | Office | [facility] | Ruslan, | COPD, moderate (HCC) | | 2018 | Visit | Pulmonology [address] | Candice Han, | (Primary Dx); | | | | [address] | [address] | Endobronchial mass; | | | | [place], [place] | [place] [address] | Narrowing of airway; | | | | [address] | [phone] | Incidental | | | | [phone] | | pulmonary nodule, | | | [...] and then another 2 weeks in a usp. He then moved to [place] with his daughter and now to [facility] to be with family. According to them, [...] 1 puff once a day. [facility] report that his breathing has become [...] second hand smoke. He grew up in [place], and also li miguel in [place] and [place]. 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 [...] Lumbar transverse process fracture, closed, initial encounter ([facility]) 10/16/2016 Spleen injury 10/16/2016 Nocturnal hypoxemia 01/17/2018 COPD, moderate ([facility]) 01/17/2018 Narrowing of airway 01/17/2018 Resolved Ambulatory Problems Diagnosis Date Noted No Resolved Ambulatory Problems Past Medical History: Diagnosis Date COPD (chronic obstructive pulmonary disease) ([facility]) Depression GERD (gastroesophageal reflux disease) Lung disease [...] Mercer MD Pulmonary and Critical Care Medicine [facility] [address] , [place] [address] I have spent 40 minutes with this [...] Dr | | | | | | [place] [address] | | | | | | [phone] | | | | | | | [...] - 01/25/2018 1:09 PM PDT JOSH Waters [id number] 12:25 | | [facility] - TORSOHISTORY: Endobronchial [...] [facility] | [address] | [place] [address] | | + + + + + [...]
--- OUTSIDE RECORDS SUMMARY | ~2018-03-09 | XMS | Encounter Summary ---
Demographics + + + | Address | [address] | | | [place] [address] | + + + | Home Phone | | + + + | Preferred Language | Unknown | + + + | Marital Status | | + + + | Episcopalian Affiliation | 1001 | + + + | Race | Unknown | + + + | Ethnic Group | Unknown | + + + Author + + + | Author | [facility] [employer] | + + + | Organization [...] Team Providers + +------+ + | Care Process Environmental Technician Name | Role | Phone | + +------+ + | yC Suarez MD | PCP | | + +------+ + Reason for Referral MRI/CAT Scan (Emergency) +--------+--------+ + + + + | Status | Reason | Specialty | Diagnoses / | Referred By | Referred To | | | | | Procedures | Contact | Contact | +--------+--------+ + + + + | Closed | | Radiology | Diagnoses | Ruslan, | [facility] | | | | | Pulmonary | Candice | [address] | | | | | nodule | [address] | [address] | | | | | Asbestos | [address] | [place] | | | | | exposure | [place] | [address] Phone: | | | | | Procedures | [place], | [phone] | | | | | CT chest | [place] [address] | | | | | | without | Phone: | | | | | | contrast | [phone] | | | | | | | Fax: | | | | | | | [phone] | | +--------+--------+ + + + + Reason for Visit + + + | Reason | Comments | + + + | Follow-up | | + + + Consult and Treat [...] | nodule | RUDY GALLAGHER | [address] | | | | | | [address] | | | | | | | [place], | [facility] | | | | | | [place] [address] | [address] Phone: | | | | | | Phone: | [phone] | | | | | | [phone] | Fax: | | | | | | Fax: | [phone] | | | | | | [phone] | | + +--------+ + + + + Encounter Details +--------+---------+ + + + | Date | Type | Department | Care Team | Description | +--------+---------+ + + + | 01/07/ | Office | [facility] | Ruslan, | COPD, moderate (HCC) | | 2018 | Visit | Pulmonology [address] | Candice Han, | (Primary Dx); | | | | [address] | [address] | Pulmonary nodule; | | | | [place], [place] | [place] [address] | Asbestos exposure | | | | [address] | [phone] | | | | | [phone] | | | +--------+---------+ + + + Social History [...] + + + | Blood Pressure | 127/78 | 01/07/2018 12:20 PM PDT | + + + + | Pulse | 88 | 01/07/2018 12:20 PM PDT | + + + + | Temperature | 36.6 C (97.8 F) | 01/07/2018 12:20 PM PDT | + + + + | Respiratory Rate | - | - | + + + + | Oxygen Saturation | 97% | 01/07/2018 12:20 PM PDT | + + + + | Inhaled Oxygen | - | - | | Concentration | | | + + + + | Weight | 64.9 kg (143 lb) | 01/07/2018 12:20 PM PDT | + + + + | Height | 157.5 cm (5' 2") | 01/07/2018 12:20 PM PDT | + + + + | Body Mass Index | 26.16 | 01/07/2018 12:20 PM PDT | + + + + in this encounter Progress Notes Caty Snow - 01/07/2018 12:30 PM PDT3 step testing Oximetry Exercise (code) 53453 1. At rest on room air: Time:1:01pm Heart rate:85 Oxygen saturations:95 2. At exercise on room air: Time:1:04pm Heart rate:103 Oxygen saturations:93 3. At exercise with oxygen: Time: Heart rate: Oxygen Saturations: Liters per minute:Candice Mercer MD - 01/07/2018 12:30 PM PDTFormatting o f this note may be different from the original. Subjective: Patient ID: Josh [...] and then another 2 weeks in a senior care. He then moved to [place] with his daughter and now to [facility] to be with family. According to them, [...] concern by his new PCP here in [facility]. He apparently has orthopnea and has been sleeping in a chair for many years now. H e also wakes up with dyspnea. He has leg edema as well. He has sino nasal discharge that com es and goes. He has been started by his primary care physician on Anoro Ellipta 1 puff once a day. His f [facility] members report that his breathing has become better since starting this medication. He is not on any short acting inhalers, and is not on any nebulized medications. He is not on oxygen supplementation. Interval History Mr Matthews comes in today for a follow up visit. He was supposed to follow up with us last a r, but did not do so. He reportedly moved to his children's house, but then demanded to retu rn to his own home, where he just did not do well (was not eating well, was staying in bed a ll day). On PFT, he was noted to have moderate COPD, and was started on Anoro Ellipta which he has refused to use. He also was found to have night time hypoxemia, but has not used this at all. He says he has been eating well, without aspiration, but with dysphagia. He has an occasional reflux. He is very short of breath, and this seems to have gotten worse in the pa st several months. He also has frequently heard wheezing. He denies chest pains, orthopnea, or PNDs. SOCIAL HISTORY He is a never smoker but may have had second hand smoke. He grew up in [place], and also li miguel in [place] and [place]. 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 8 F (36.6 C) (Oral) | Ht 1.575 m (5' 2") Comment: per pt | Wt 64.9 kg (143 lb) | SpO2 97% | BMI 26.16 kg/m Vital signs reviewed. Oxygen saturation noted at 97% on ambient air, no desaturations on 3 min walk GENERAL: stooped, pleasant, cooperative, oriented, not in distress HEENT: pink conjunctiva, anicteric sclerae, moist oral mucosae and without any lesions, nor mal appearing nasal mucosae; no JVD; MALAMPATTI 4; no thyromegaly; no cervicolymphadenopathi es; CVS: PMI non displaced, NRRR, S1 and S2, no murmurs/gallops/rubs CHEST: Examination of the chest showed a kyphosis. LUNGS: Normal effort, Equal in expansion, resonant to percussion, end expiratory wheezing p resent, with occasional crackles on the bases ABDOMEN: Slightly protuberant abdomen, NABS, non-tender on [...] (79%) Interpretation: Moderate obstruction, mildly reduced DLCO. No imaging to review. CT of the chest in August 2009 [...] calcifications, granulomatous calcifications, and large hiatus hernia Assessment and Plan: 1. COPD, moderate (HCC) Mr Matthews is an 82 yr old man who has had persistent wheezing and dyspnea over the past year. PFT has shown a moderate obstruction with a moderately reduced DLCO. He was tried on mainte nance inhaler, Anoro, but he has been non compliant with this, and did not want to use this at all. I have recommended maybe trying scheduled nebulization with albuterol-ipratropium ev deedee six hours to help with his wheezing and dyspnea. We will send this to their local DME. I have explained the nature of chronic lung disease to him and his family. Continued physic al activity has been encouraged, at his own pace. Of note, echo done did not show any pulmonary hypertension or cardiac abnormalities. - Nebulizer (medical transcriber); Please provide Nebulizer machine, tubing, and mouthpiece. Pls send replacement tubing every three months. Refill for tubing, filter and mouthpiece #6 Di spense: 1 each; Refill: 0 - ipratropium-albuterol (DUO-NEB) 0.5-2.5 mg/3mL; Take 3 mLs by nebulization every 6 (six) hours as needed (wheezing or cough). Dispense: 360 mL; Refill: 5 2. Pulmonary nodule He has been noted to have a 6-7 mm superior segment pulmonary nodule. A repeat CT was reque sted STAT so that this can be followed. He was supposedly ordered to get a a PET CT here in [facility], but this has not been ordered. I think that a repeat CT would suffice, and if the no dule is increased in size, then biopsy would be next to determine its nature. - CT chest without contrast; Future 3. Asbestos exposure He has been exposed to asbestos significantly in the past 20 years of his working life. He has no evidence of ILD or pleural plaques based on imaging. - CT chest without contrast; Future 4. Hiatal hernia He has a hiatal hernia which may be contributing to dyspnea as well, since this is occupyin g his chest. Continue with efforts at trying to eat earlier during the evening, and not to l ay down immediately after a meal. Watch out for reflux and regurgitation. He is on a PPI for this as well. Thank you for allowing us to participate [...] Mercer MD Pulmonary and Critical Care Medicine [facility] [address] , [place] [address] I have spent 40 minutes with this patient, answering questions, explaining our plan and di abdi approach, as well as coordinating care. in this encounter Plan of Treatment +--------+---------+ + + + | Date | Type | Specialty | Care Team | Description | +--------+---------+ + + + | 04/06/ | Office | Pulmonology | [facility], | | | 2018 | Visit | | Candice Han, | | | | | | MD [address] | | | | | | [place] [address] | | | | | | [phone] | | | | | | | | +--------+---------+ + + + as of this encounter Results CT chest without contrast (01/10/2018 4:40 PM) [...] [facility] | [address] | [place] [address] | | + + + + + in this encounter Visit Diagnoses + + | Diagnosis | + + | COPD, moderate (HCC) - Primary | + + | Chronic airway obstruction, not elsewhere classified | + + | Pulmonary nodule | + + | Solitary pulmonary nodule | + + | Asbestos exposure | + + | Personal history of contact with and (suspected) exposure to asbestos | + +
--- OUTSIDE RECORDS SUMMARY | ~2018-03-09 | XMS | Encounter Summary ---
Demographics + + + | Address | [address] | | | [place] [address] | + + + | Home Phone | | + + + | Preferred Language | Unknown | + + + | Marital Status | | + + + | Protestant Affiliation | 1001 | + + + | Race | Unknown | + + + | Ethnic Group | Unknown | + + + Author + + + | Author | [employer] [employer] | + + + | Organization [...] Team Providers + +------+ + | Care Physician'S Aide Name | Role | Phone | + +------+ + | Cy Suarez MD | PCP | | + +------+ + Reason for Visit +--------+ + | Reason | Comments | +--------+ + | Other | Respiratory Therapy form | +--------+ + Encounter Details +--------+ + + + + | Date | Type | Department | Care Team | Description | +--------+ + + + + | 01/18/ | Documentati | [facility] | Cristina Starks, | Other (Respiratory | | 2018 | on Only | Pulmonology [address] | CONVENTIONAL MACHINIST | Therapy form) | | | | [place] | | | | | | [place] | | | | | | [address] | | | | | | [phone] | | | +--------+ + + + [...] encounter Progress Notes Cristina Starks CMA - 01/18/2018 9:51 AM PDTFaxed respiratory therapy form with chart note s to [facility] at [phone]. Confirmation received in this encounter Plan of Treatment +--------+---------+ + + + | Date | Type | Specialty | Care Team | Description | +--------+---------+ + + + | 04/06/ | Office | Pulmonology | Ruslan, | | | 2017 | Visit | | Candice Han, | | | | | | MD [address] | | | | | | [place] [address] | | | | | | [phone] | | | | | | | | +--------+---------+ + + + as of this encounter Visit Diagnoses Not on filein this encounter"
--- OUTSIDE RECORDS SUMMARY | ~2018-03-09 | XMS | Encounter Summary ---
Demographics + + + | Address | [address] | | | [place] [address] | + + + | Home Phone | | + + + | Preferred Language | Unknown | + + + | Marital Status | | + + + | Cheondoism Affiliation | 1001 | + + + | Race | Unknown | + + + | Ethnic Group | Unknown | + + + Author + + + | Author | [employer] [employer] | + + + | Organization [...] Team Providers + +------+ + | Care Lye Peel Operator Name | Role | Phone | + [...] + + | 01/18/ | Documentati | [facility] | Cristina Starks, | Other (Respiratory | | 2018 | on Only | Pulmonology [address] | ROLLED GOLD PLATER | Therapy form) | | | | [address] | | | | | | [place] | | | | | | [address] | | | | | | [phone] | | | +--------+ + + + [...] chart note s to [facility] at [phone]. Confirmation received in this encounter Plan of Treatment +--------+---------+ + + + | Date | Type | Specialty | Care Team | Description | +--------+---------+ + + + | 04/06/ | Office | Pulmonology | Ruslan, | | | 2017 | Visit | | Candice Han, | | | | | | MD [address] | | | | | | [place] [address] | | | | | | [phone] | | | | | | | | +--------+---------+ + + + as of this encounter Visit Diagnoses Not on filein this encounter"
--- OUTSIDE RECORDS SUMMARY | ~2018-03-09 | XMS | Clinical Summary ---
Demographics + + + | Address | [address] | | | [place] [address] | + + + | Home Phone | | + + + | Preferred Language | Unknown | + + + | Marital Status | | + + + | Zoroastrianism Affiliation | 1001 | + + + | Race | Unknown | + + + | Ethnic Group | Unknown | + + + Author + + + | Author | [facility] [employer] | + + + | Organization [...] Team Providers + +------+ + | Care Host/Hostess Restaurant Name | Role | Phone | + [...] | | 18 | | | | ([facility]) | mouthpiece. Pls send | | | [...] CT of his chest, again on 10/20. Kiln Puller | | did not recommend draining the [...] | 2018 | on Only | | IMAGING SYSTEM ADMINISTRATOR | Therapy form) | +--------+ + + [...] | 2018 | on Only | | IMAGING SYSTEM ADMINISTRATOR | | +--------+ + + + + [...] Dr | | | | | | [place] [address] | | | | | | [phone] | | | | | | | [...] In - 01/25/2018 1:09 PM PDT JOSH ZAVALAN2/20/87147/12/2017 12:25 | | PMPET CT TUMOR LOCALIZATION [...] [facility] | [address] | [place] [address] | | + + + + + POCT glucose (01/25/2018 10:34 AM) + + + + + | Component | Value | Ref Range | Performed At | + + + + + | GLUCOSE,POC SCREEN | 84Comment: Testing | 65 - 99 mg/dL | [facility] | | | performed at [facility];[address] | | | | | [address];[place] | | | | | [address] | | | + + + + + + + + + + | Performing | Address | City/State/Zipcode | Phone Number | | Organization | | | | + + + + + | [facility] | [address] | [place] [address] | | + + + + + [...] | [address] | [place] [address] | | + + + + + [...] +------+-------+ + | MEDICARE | MEDICA | [id number] | | | [address] | | | RE | | | | [place] [phone] | | | IP-OP | | | | | + +--------+ +------+-------+ + | [facility] | UNITED | [id number] | | | | | | | [...] | 1936 | [phone] | [place] [address] | | | mireya | | | [phone] | | + +--------+ +--------+ + +
--- OUTSIDE RECORDS SUMMARY | ~2018-03-09 | XMS | Encounter Summary ---
Demographics + + + | Address | [address] | | | [place] [address] | + + + | Home Phone | | + + + | Preferred Language | Unknown | + + + | Marital Status | | + + + | Jewish Affiliation | 1001 | + + + | Race | Unknown | + + + | Ethnic Group | Unknown | + + + Author + + + | Author | [employer] | + + + | Organization [...] Team Providers + +------+ + | Care Atomic Physics Professor Name | Role | Phone | + +------+ + | Cy Suarez MD | PCP | | + +------+ + Encounter Details +--------+ + + + + | Date | Type | Department | Care Team | Description | +--------+ + + + + | 01/24/ | Telephone | [facility] | Verito Oleary RN | | | 2017 | | Pulmonology [address] | | | | | | [place] | | | | | | [place] | | | | | | [address] | | | | | | [phone] | | | +--------+ + + + [...] | | | | | | [facility] [address] | | | | | | [phone] | | | | | | | | +--------+---------+ + + + as of this encounter Visit Diagnoses Not on filein this encounter"
--- OUTSIDE RECORDS SUMMARY | ~2018-03-09 | XMS | Encounter Summary ---
Demographics + + + | Address | [address] | | | [place] [address] | + + + | Home Phone | | + + + | Preferred Language | Unknown | + + + | Marital Status | | + + + | Gnosticism Affiliation | 1001 | + + + | Race | Unknown | + + + | Ethnic Group | Unknown | + + + Author + + + | Author | [facility] [employer] | + + + | Organization [...] Team Providers + +------+ + | Care Strip Tank Tender Name | Role | Phone | + +------+ + | Cy Suarez MD | PCP | | + +------+ + Encounter Details +--------+ + + + + | Date | Type | Department | Care Team | Description | +--------+ + + + + | 01/24/ | Documentati | [facility] | Verito Oleary RN | | | 2018 | on Only | Pulmonology [address] | | | | | | [place] | | | | | | [place] | | | | | | [address] | | | | | | [phone] | | | +--------+ + + + [...] encounter Progress Notes Verito Oleary RN - 01/24/2018 11:59 AM PDTCalled and gave Joshua results of recent overnigh t oximetry test results with instructions Joshua continue to use 2 liters oxygen at night. Ashley castellon stated understanding of all results and instructions and had no further questions or c oncerns. Faxed completed cmn for overnight oxygen order to [facility]. Will send results from o vernight oximetry and completed CMN to records for scanning. in this encounter Plan of Treatment +--------+---------+ + + + | Date | Type | Specialty | Care Team | Description | +--------+---------+ + + + | 04/06/ | Office | Pulmonology | Ruslan, | | | 2017 | Visit | | Candice Han, | | | | | | MD [address] | | | | | | [place] [address] | | | | | | [phone] | | | | | | | | +--------+---------+ + + + as of this encounter Visit Diagnoses Not on filein this encounter"
--- OUTSIDE RECORDS SUMMARY | ~2018-03-09 | XMS | Encounter Summary ---
Demographics + + + | Address | [address] | | | [place] [address] | + + + | Home Phone | | + + + | Preferred Language | Unknown | + + + | Marital Status | | + + + | Confucianist Affiliation | 1001 | + + + | Race | Unknown | + + + | Ethnic Group | Unknown | + + + Author + + + | Author | [employer] | + + + | Organization [...] Team Providers + +------+ + | Care Oracle Ascp Consultant Name | Role | Phone | + [...] | Radiology | Diagnoses | Ruslan, | [facility] [address] | | | | | Pulmonary | Candice | [address] | | | | | nodule | [address] | | | | | Asbestos | [address] | [place] | | | | | exposure | [place] | [address] Phone: | | | | | Procedures | [place], | [phone] | | | | | CT chest | [place] [address] | | | | | | without | Phone: | | | | | | contrast | [phone] | | | | | | | Fax: | | | | | | | [phone] | | +--------+--------+ + + + + MRI/CAT Scan (Emergency) +--------+--------+ + + + + | Status | Reason | Specialty | Diagnoses / | Referred By | Referred To | | | | | Procedures | Contact | Contact | +--------+--------+ + + + + | Closed | | Radiology | Diagnoses | Ruslan, | [facility] [address] | | | | | Pulmonary | Candice | [address] | | | | | nodule | [address] | | | | | Asbestos | [address] | [place] | | | | | exposure | [place] | [address] Phone: | | | | | Procedures | [facility], | [phone] | | | | | CT chest | [place] [address] | | | | | | without | Phone: | | | | | | contrast | [phone] | | | | | | | Fax: | | | | | | | [phone] | | +--------+--------+ + + + + Reason for Visit MRI/CAT Scan (Emergency) +--------+--------+ + + + + | Status | Reason | Specialty | Diagnoses / | Referred By | Referred To | | | | | Procedures | Contact | Contact | +--------+--------+ + + + + | Closed | | Radiology | Diagnoses | Ruslan, | [facility] [address] | | | | | Pulmonary | Candice | [address] | | | | | nodule | [address] | | | | | Asbestos | [address] | [place], [place] | | | | | exposure | [address] | [address] Phone: | | | | | Procedures | [facility] [phone] | | | | | CT chest | [place] [address] | | | | | | without | Phone: | | | | | | contrast | [phone] | | | | | | | Fax: | | | | | | | [phone] | | +--------+--------+ + + + + Encounter Details +--------+ + + + + | Date | Type | Department | Care Team | Description | +--------+ + + + + | 01/10/ | Hospital | [facility] | Ruslan, | Pulmonary nodule; | | 2018 | Encounter | [facility] | Candice Han, | Asbestos exposure | | | | CT [address] | [address] | | | | | [address] | [place] [address] | | | | | [place] [address] | [phone] | | | | | [phone] | | | +--------+ + + + [...] Dr | | | | | | [place] [address] | | | | | | [phone] | | | | | | | [...] + + + in this encounter Results CT chest without contrast [...] | + + + | JOSHUA MATTHEWS CT CHEST WO CONTRAST 01/10/2018 4:40 [...] Results In - 01/10/2018 5:05 PM PDT JOSHUA GANDARA CHEST WO | | CONTRAST01/10/2018 4:40 [...] [facility] | [address] | [place] [address] | | + + + + + in this encounter Visit Diagnoses + + | Diagnosis | + + | Pulmonary nodule | + + | Solitary pulmonary nodule | + + | Asbestos exposure | + + | Personal history of contact with and (suspected) exposure to asbestos | + +"
--- OUTSIDE RECORDS SUMMARY | ~2018-03-09 | XMS | Encounter Summary ---
Demographics + + + | Address | [address] | | | [place] [address] | + + + | Home Phone | | + + + | Preferred Language | Unknown | + + + | Marital Status | | + + + | Temple Affiliation | 1001 | + + + | Race | Unknown | + + + | Ethnic Group | Unknown | + + + Author + + + | Author | [employer] | + + + | Organization [...] Team Providers + +------+ + | Care Wall Insulation Sprayer Name | Role | Phone | + [...] + + | 01/18/ | Documentati | [facility] | Cristina Starks, | Other (Respiratory | | 2018 | on Only | Pulmonology [address] | CLINICAL PSYCHOLOGIST PRIVATE PRACTICE | Therapy form) | | | | [address] | | | | | | [place] | | | | | | [address] | | | | | | [phone] | | | +--------+ + + + [...] chart note s to [facility] at [phone]. Confirmation received in this encounter Plan of Treatment +--------+---------+ + + + | Date | Type | Specialty | Care Team | Description | +--------+---------+ + + + | 04/06/ | Office | Pulmonology | Ruslan, | | | 2017 | Visit | | Candice Han, | | | | | | MD [address] | | | | | | [place] [address] | | | | | | [phone] | | | | | | | | +--------+---------+ + + + as of this encounter Visit Diagnoses Not on filein this encounter"
--- OUTSIDE RECORDS SUMMARY | ~2018-03-09 | XMS | Encounter Summary ---
Demographics + + + | Address | [address] | | | [place] [address] | + + + | Home Phone | | + + + | Preferred Language | Unknown | + + + | Marital Status | | + + + | Catholic Affiliation | 1001 | + + + | Race | Unknown | + + + | Ethnic Group | Unknown | + + + Author + + + | Author | [facility] [facility] | + + + | Organization [...] Team Providers + +------+ + | Care Systems Admin Name | Role | Phone | + [...] | Radiology | Diagnoses | Ruslan, | [facility] [address] | | | | | Pulmonary | Candice | [address] | | | | | nodule | [address] | [address] | | | | | Asbestos | [address] | [place] | | | | | exposure | [address] | [address] Phone: | | | | | Procedures | [place], | [phone] | | | | | CT chest | [place] [address] | | | | | | without | Phone: | | | | | | contrast | [phone] | | | | | | | Fax: | | | | | | | [phone] | | +--------+--------+ + + + + MRI/CAT Scan (Emergency) +--------+--------+ + + + + | Status | Reason | Specialty | Diagnoses / | Referred By | Referred To | | | | | Procedures | Contact | Contact | +--------+--------+ + + + + | Closed | | Radiology | Diagnoses | Ruslan, | [facility] [address] | | | | | Pulmonary | Candice | [address] | | | | | nodule | [address] | Bl[address] | | | | | Asbestos | [address] | [place] | | | | | exposure | [address] | [address] Phone: | | | | | Procedures | [facility], | [phone] | | | | | CT chest | [place] [address] | | | | | | without | Phone: | | | | | | contrast | [phone] | | | | | | | Fax: | | | | | | | [phone] | | +--------+--------+ + + + + Reason for Visit MRI/CAT Scan (Emergency) +--------+--------+ + + + + | Status | Reason | Specialty | Diagnoses / | Referred By | Referred To | | | | | Procedures | Contact | Contact | +--------+--------+ + + + + | Closed | | Radiology | Diagnoses | Ruslan, | [facility] [address] | | | | | Pulmonary | Candice | [address] | | | | | nodule | [address] | [address] | | | | | Asbestos | [address] | [place], [place] | | | | | exposure | [address] | [address] Phone: | | | | | Procedures | [facility] [phone] | | | | | CT chest | [place] [address] | | | | | | without | Phone: | | | | | | contrast | [phone] | | | | | | | Fax: | | | | | | | [phone] | | +--------+--------+ + + + + Encounter Details +--------+ + + + + | Date | Type | Department | Care Team | Description | +--------+ + + + + | 01/10/ | Hospital | [facility] | Ruslan, | Pulmonary nodule; | | 2018 | Encounter | [facility] | Candice Han, | Asbestos exposure | | | | CT [address] | [address] | | | | | [address] | [place] [address] | | | | | [place] [address] | [phone] | | | | | [phone] | | | +--------+ + + + [...] Dr | | | | | | [place] [address] | | | | | | [phone] | | | | | | | [...] [facility] | [address] | [place] [address] | | + + + + + in this encounter Visit Diagnoses + + | Diagnosis | + + | Pulmonary nodule | + + | Solitary pulmonary nodule | + + | Asbestos exposure | + + | Personal history of contact with and (suspected) exposure to asbestos | + +"
--- OUTSIDE RECORDS SUMMARY | ~2018-03-09 | XMS | Clinical Summary ---
Demographics + + + | Address | [address] | | | [place] [address] | + + + | Home Phone | | + + + | Preferred Language | Unknown | + + + | Marital Status | | + + + | Anabaptism Affiliation | 1001 | + + + | Race | Unknown | + + + | Ethnic Group | Unknown | + + + Author + + + | Author | [facility] | + + + | Organization [...] Team Providers + +------+ + | Care Shoulder Joiner Name | Role | Phone | + [...] | | 18 | | | | [facility] | mouthpiece. Pls send [...] CT of his chest, again on 10/20. [place] | | did not recommend draining the [...] | 2018 | on Only | | PYROMETER TEMPERATURE REGULATOR | Therapy form) | +--------+ + + [...] | 2018 | on Only | | PYROMETER TEMPERATURE REGULATOR | | +--------+ + + + + [...] Dr | | | | | | [place] [address] | | | | | | [phone] | | | | | | | [...] In - 01/25/2018 1:09 PM PDT JOSH [id number]/20/10831/12/2017 12:25 | | PMPET CT TUMOR LOCALIZATION [...] [facility] | [address] | [place] [address] | | + + + + + POCT glucose (01/25/2018 10:34 AM) + + + + + | Component | Value | Ref Range | Performed At | + + + + + | GLUCOSE,POC SCREEN | 84Comment: Testing | 65 - 99 mg/dL | [facility] | | | performed at [facility];[address] | | | | | [address];[place] | | | | | [address] | | | + + + + + + + + + + | Performing | Address | City/State/Zipcode | Phone Number | | Organization | | | | + + + + + | [facility] | [address] | [place] [address] | | + + + + + [...] | [address] | [place] [address] | | + + + + + [...] +------+-------+ + | MEDICARE | MEDICA | [id number] | | | [address] | | | RE | | | | [place] [phone] | | | IP-OP | | | | | + +--------+ +------+-------+ + | [facility] | UNITED | [id number] | | | | | | | [...] | 1936 | [phone] | [place] [address] | | | mireya | | | [phone] | | + +--------+ +--------+ + +
--- OUTSIDE RECORDS SUMMARY | ~2018-03-09 | XMS | Encounter Summary ---
Demographics + + + | Address | [address] | | | [place] [address] | + + + | Home Phone | | + + + | Preferred Language | Unknown | + + + | Marital Status | | + + + | Nondenominational Affiliation | 1001 | + + + | Race | Unknown | + + + | Ethnic Group | Unknown | + + + Author + + + | Author | [facility] [employer] [facility] | + + + | Organization [...] Team Providers + +------+ + | Care Instrument Maker Name | Role | Phone | + [...] | Radiology | Diagnoses | Ruslan, | [facility] | | | | | | Candice | Nuclear | | | | | Endobronchia | MD Emely | Medicine [address] | | | | | [address] | [address] | [address] | | | | | Procedures | [address] | [address] | | | | | PET Initial | [place], | [place], [place] | | | | | [place] | [place] [address] | [address] Phone: | | | | | | Phone: | [phone] | | | | | | [phone] | Fax: | | | | | | Fax: | [phone] | | | | | | [phone] | | +--------+--------+ + + + + PET (Routine) +--------+--------+ + + + + | Status | Reason | Specialty | Diagnoses / | Referred By | Referred To | | | | | Procedures | Contact | Contact | +--------+--------+ + + + + | Closed | | Radiology | Diagnoses | Ruslan, | [facility] | | | | | | Candice | Nuclear | | | | | Endobronchia | MD Emely | Medicine [address] | | | | | l mass | [address] | [address] | | | | | Procedures | [address] | [address] | | | | | PET Initial | [place], | [place], [place] | | | | | [place] | [place] [address] | [address] Phone: | | | | | | Phone: | [phone] | | | | | | [phone] | Fax: | | | | | | Fax: | [phone] | | | | | | [phone] | | +--------+--------+ + + + + Reason for Visit PET (Routine) +--------+--------+ + + + + | Status | Reason | Specialty | Diagnoses / | Referred By | Referred To | | | | | Procedures | Contact | Contact | +--------+--------+ + + + + | Closed | | Radiology | Diagnoses | Ruslan, | [facility] | | | | | | Candice | Nuclear | | | | | Endobronchia | [address]ely | Medicine [address] | | | | | l mass | [address] | [address] | | | | | Procedures | [address] | [address] | | | | | PET Initial | [place], | [place], [place] | | | | | [place] | [place] [address] | [address] Phone: | | | | | | Phone: | [phone] | | | | | | [phone] | Fax: | | | | | | Fax: | [phone] | | | | | | [phone] | | +--------+--------+ + + + + Encounter Details +--------+ + + + + | Date | Type | Department | Care Team | Description | +--------+ + + + + | 01/25/ | Hospital | [facility] | Ruslan, | Endobronchial mass | | 2018 | Encounter | [facility] | Candice Han, | | | | | Nuclear Medicine | [address] | | | | | [address] | [place] [address] | | | | | [address] [place], | [phone] | | | | | [place] [address] | | | | | | [phone] | | | +--------+ + + + [...] | | | | | COPD, moderate ([facility]) | | | | | | + [...] [address] | | | | | | [place] [address] | | | | | | [phone] | | | | | | | [...] - 01/25/2018 1:09 PM PDT JOSHUA Waters [id number]/20/65034 12:25 | | PMPET CT TUMOR LOCALIZATION [...] | + + + + + | [facility] | [address] | [place] [address] | | + + + + + POCT glucose (01/25/2018 10:34 AM) + + + + + | Component | Value | Ref Range | Performed At | + + + + + | GLUCOSE,POC SCREEN | 84Comment: Testing | 65 - 99 mg/dL | [facility] | | | performed at [facility];[address] | | | | | [address];[place] | | | | | [address] | | | + + + + + + + + + + | Performing | Address | City/State/Zipcode | Phone Number | | Organization | | | | + + + + + | [facility] | [address] | [place] [address] | | + + + + + [...]
--- OUTSIDE RECORDS SUMMARY | ~2018-03-09 | XMS | Encounter Summary ---
Demographics + + + | Address | [address] | | | [place] [address] | + + + | Home Phone | | + + + | Preferred Language | Unknown | + + + | Marital Status | | + + + | Spiritism Affiliation | 1001 | + + + | Race | Unknown | + + + | Ethnic Group | Unknown | + + + Author + + + | Author | [facility] [facility] | + + + | Organization [...] Team Providers + +------+ + | Care Manager Of Health Name | Role | Phone | + +------+ + | Cy Suarez MD | PCP | | + +------+ + Encounter Details +--------+ + + + + | Date | Type | Department | Care Team | Description | +--------+ + + + + | 01/26/ | Telephone | [facility] | Verito Oleary RN | | | 2017 | | Pulmonology [address] | | | | | | [address] | | | | | | [place] | | | | | | [address] | | | | | | [phone] | | | +--------+ + + + [...] Dr | | | | | | [facility] [address] | | | | | | [phone] | | | | | | | | +--------+---------+ + + + as of this encounter Visit Diagnoses Not on filein this encounter"
--- OUTSIDE RECORDS SUMMARY | ~2018-03-09 | XMS | Encounter Summary ---
Demographics + + + | Address | [address] | | | [place] [address] | + + + | Home Phone | | + + + | Preferred Language | Unknown | + + + | Marital Status | | + + + | Yarsanism Affiliation | 1001 | + + + | Race | Unknown | + + + | Ethnic Group | Unknown | + + + Author + + + | Author | [facility] | + + + | Organization [...] Team Providers + +------+ + | Care Rigger Third Name | Role | Phone | + +------+ + | Cy Suarez MD | PCP | | + +------+ + Encounter Details +--------+ + + + + | Date | Type | Department | Care Team | Description | +--------+ + + + + | 01/24/ | Documentati | [facility] | Verito Oleary RN | | | 2018 | on Only | Pulmonology [address] | | | | | | [address] | | | | | | [place] | | | | | | [address] | | | | | | [phone] | | | +--------+ + + + [...] completed cmn for overnight oxygen order to [facility]. Will send results from o vernight oximetry [...] Dr | | | | | | [place] [address] | | | | | | [phone] | | | | | | | | +--------+---------+ + + + as of this encounter Visit Diagnoses Not on filein this encounter"
--- OUTSIDE RECORDS SUMMARY | ~2018-03-09 | XMS | Encounter Summary ---
Demographics + + + | Address | [address] | | | [place] [address] | + + + | Home Phone | | + + + | Preferred Language | Unknown | + + + | Marital Status | | + + + | Alevism Affiliation | 1001 | + + + | Race | Unknown | + + + | Ethnic Group | Unknown | + + + Author + + + | Author | [facility] [employer] [facility] | + + + | Organization [...] Team Providers + +------+ + | Care Summer Clerk Name | Role | Phone | + +------+ + | Cy Suarez MD | PCP | | + +------+ + Encounter Details +--------+ + + + + | Date | Type | Department | Care Team | Description | +--------+ + + + + | 01/17/ | Documentati | [facility] | Verito Oleary RN | | | 2018 | on Only | Pulmonology [address] | | | | | | [address] | | | | | | [place] | | | | | | [address] | | | | | | [phone] | | | +--------+ + + + [...] Dr | | | | | | [place] [address] | | | | | | [phone] | | | | | | | | +--------+---------+ + + + as of this encounter Visit Diagnoses Not on filein this encounter"
--- OUTSIDE RECORDS SUMMARY | ~2018-03-09 | XMS | Encounter Summary ---
Demographics + + + | Address | [address] | | | [place] [address] | + + + | Home Phone | | + + + | Preferred Language | Unknown | + + + | Marital Status | | + + + | Amish Affiliation | 1001 | + + + | Race | Unknown | + + + | Ethnic Group | Unknown | + + + Author + + + | Author | [facility] [employer] | + + + | Organization [...] Providers + +------+ + | Care Manager Gyn Name | Role | Phone | + [...] | Radiology | Diagnoses | Ruslan, | [facility] | | | | | | Candice | Nuclear | | | | | Endobronchia | MD Emely | Medicine [address] | | | | | l mass | [address] | [address] | | | | | Procedures | [address] | [address] | | | | | PET Initial | [place], | [place], [place] | | | | | [place] | [place] [address] | [address] Phone: | | | | | | Phone: | [phone] | | | | | | [phone] | Fax: | | | | | | Fax: | [phone] | | | | | | [phone] | | +--------+--------+ + + + + [...] | | | | | [place], | [place], [place] | | | | | | [place] [address] | [address] Phone: | | | | | | Phone: | [phone] | | | | | | [phone] | Fax: | | | | | | Fax: | [phone] | | | | | | [phone] | | + +--------+ + + + + Encounter Details +--------+---------+ + + + | Date | Type | Department | Care Team | Description | +--------+---------+ + + + | 01/17/ | Office | [facility] | Ruslan, | COPD, moderate (HCC) | | 2018 | Visit | Pulmonology [address] | Candice Han, | (Primary Dx); | | | | [address] LONI D | [address] | Endobronchial mass; | | | | [place], [place] | [place] [address] | Narrowing of airway; | | | | [address] | [phone] | Incidental | | | | [phone] | | pulmonary nodule, | | | [...] and then another 2 weeks in a shelter. He then moved to [place] with his daughter and now to [facility] to be with family. According to [...] 1 puff once a day. His f hamilton centery members report that his breathing has become [...] second hand smoke. He grew up in [place], and also li miguel in [place] and [place]. 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 [...] Lumbar transverse process fracture, closed, initial encounter ([facility]) 10/16/2016 Spleen injury 10/16/2016 Nocturnal hypoxemia 01/17/2018 COPD, moderate ([facility]) 01/17/2018 Narrowing of airway 01/17/2018 Resolved Ambulatory Problems Diagnosis Date Noted No Resolved Ambulatory Problems Past Medical History: Diagnosis Date COPD (chronic obstructive pulmonary disease) ([facility]) Depression GERD (gastroesophageal reflux disease) Lung disease [...] Mercer MD Pulmonary and Critical Care Medicine [facility] [address] , [place] [address] I have spent 40 minutes with this [...] Dr | | | | | | [place] [address] | | | | | | [phone] | | | | | | | [...] - 01/25/2018 1:09 PM PDT JOSH Waters [id number]/20/[id number] 12:25 | | [facility] - [...] [facility] | [address] | [place] [address] | | + + + + + [...]
--- OUTSIDE RECORDS SUMMARY | ~2018-03-09 | XMS | Encounter Summary ---
Demographics + + + | Address | [address] | | | [place] [address] | + + + | Home Phone | | + + + | Preferred Language | Unknown | + + + | Marital Status | | + + + | Buddhism Affiliation | 1001 | + + + | Race | Unknown | + + + | Ethnic Group | Unknown | + + + Author + + + | Author | [facility] [employer] | + + + | Organization [...] Team Providers + +------+ + | Care Extractor Filler Name | Role | Phone | + [...] | Radiology | Diagnoses | Ruslan, | [facility] | | | | | | Candice | Nuclear | | | | | Endobronchia | MD Emely | Medicine [address] | | | | | l mass | [address] | [address] | | | | | Procedures | [address] | [address] | | | | | PET Initial | [place], | [place], [place] | | | | | [place] | [place] [address] | [address] Phone: | | | | | | Phone: | [phone] | | | | | | [phone] | Fax: | | | | | | Fax: | [phone] | | | | | | [phone] | | +--------+--------+ + + + + PET (Routine) +--------+--------+ + + + + | Status | Reason | Specialty | Diagnoses / | Referred By | Referred To | | | | | Procedures | Contact | Contact | +--------+--------+ + + + + | Closed | | Radiology | Diagnoses | Ruslan, | [facility] | | | | | | Candice | Nuclear | | | | | Endobronchia | MD Emely | Medicine [address] | | | | | l mass | [address] | [address] | | | | | Procedures | [address] | [address] | | | | | PET Initial | [place], | [place], [place] | | | | | [place] | [place] [address] | [address] Phone: | | | | | | Phone: | [phone] | | | | | | [phone] | Fax: | | | | | | Fax: | [phone] | | | | | | [phone] | | +--------+--------+ + + + + Reason for Visit PET (Routine) +--------+--------+ + + + + | Status | Reason | Specialty | Diagnoses / | Referred By | Referred To | | | | | Procedures | Contact | Contact | +--------+--------+ + + + + | Closed | | Radiology | Diagnoses | Ruslan, | [facility] | | | | | | Candice | Nuclear | | | | | Endobronchia | MD Emely | Medicine [address] | | | | | l mass | [address] | [address] | | | | | Procedures | [address] | [address] | | | | | PET Initial | [place], | [place], [place] | | | | | [place] | [place] [address] | [address] Phone: | | | | | | Phone: | [phone] | | | | | | [phone] | Fax: | | | | | | Fax: | [phone] | | | | | | [phone] | | +--------+--------+ + + + + Encounter Details +--------+ + + + + | Date | Type | Department | Care Team | Description | +--------+ + + + + | 01/25/ | Hospital | [facility] | Ruslan, | Endobronchial mass | | 2018 | Encounter | [facility] | Candice Han, | | | | | Nuclear Medicine | [address] | | | | | [address] | [place] [address] | | | | | [address] [place], | [phone] | | | | | [place] [address] | | | | | | [phone] | | | +--------+ + + + [...] | | | | | COPD, moderate ([facility]) | | | | | | [...] [address] | | | | | | [place] [address] | | | | | | [phone] | | | | | | | [...] - 01/25/2018 1:09 PM PDT JOSHUA Waters BREN2/20/84749 12:25 | | PMPET CT TUMOR LOCALIZATION [...] | + + + + + | [facility] | [address] | [place] [address] | | + + + + + POCT glucose (01/25/2018 10:34 AM) + + + + + | Component | Value | Ref Range | Performed At | + + + + + | GLUCOSE,POC SCREEN | 84Comment: Testing | 65 - 99 mg/dL | [facility] | | | performed at [facility] | | | | | [address];[place] | | | | | [address] | | | + + + + + + + + + + | Performing | Address | City/State/Zipcode | Phone Number | | Organization | | | | + + + + + | [facility] | [address] | [place] [address] | | + + + + + [...]
--- OUTSIDE RECORDS SUMMARY | ~2018-03-09 | XMS | Encounter Summary ---
Demographics + + + | Address | [address] | | | [place] [address] | + + + | Home Phone | | + + + | Preferred Language | Unknown | + + + | Marital Status | | + + + | Confucianism Affiliation | 1001 | + + + | Race | Unknown | + + + | Ethnic Group | Unknown | + + + Author + + + | Author | [facility] [employer] [facility] | + + + | Organization [...] Team Providers + +------+ + | Care Regional Director Name | Role | Phone | + [...] | Radiology | Diagnoses | Ruslan, | [facility] [address] | | | | | Pulmonary | Candice | [address] | | | | | nodule | [address] | [address] | | | | | Asbestos | [address] | [place] | | | | | exposure | [address] | [address] Phone: | | | | | Procedures | [place], | [phone] | | | | | CT chest | [place] [address] | | | | | | without | Phone: | | | | | | contrast | [phone] | | | | | | | Fax: | | | | | | | [phone] | | +--------+--------+ + + + + MRI/CAT Scan (Emergency) +--------+--------+ + + + + | Status | Reason | Specialty | Diagnoses / | Referred By | Referred To | | | | | Procedures | Contact | Contact | +--------+--------+ + + + + | Closed | | Radiology | Diagnoses | Ruslan, | [facility] [address] | | | | | Pulmonary | Candice | [address] | | | | | nodule | [address] | [address] | | | | | Asbestos | [address] | [place] | | | | | exposure | [address] | [address] Phone: | | | | | Procedures | [facility] | [phone] | | | | | CT chest | [place] [address] | | | | | | without | Phone: | | | | | | contrast | [phone] | | | | | | | Fax: | | | | | | | [phone] | | +--------+--------+ + + + + Reason for Visit MRI/CAT Scan (Emergency) +--------+--------+ + + + + | Status | Reason | Specialty | Diagnoses / | Referred By | Referred To | | | | | Procedures | Contact | Contact | +--------+--------+ + + + + | Closed | | Radiology | Diagnoses | Ruslan, | [facility] [address] | | | | | Pulmonary | Candice | [address] | | | | | nodule | [address] | [address] | | | | | Asbestos | [address] | [place], [place] | | | | | exposure | [address] | [address] Phone: | | | | | Procedures | [facility] [phone] | | | | | CT chest | [place] [address] | | | | | | without | Phone: | | | | | | contrast | [phone] | | | | | | | Fax: | | | | | | | [phone] | | +--------+--------+ + + + + Encounter Details +--------+ + + + + | Date | Type | Department | Care Team | Description | +--------+ + + + + | 01/10/ | Hospital | [facility] | Ruslan, | Pulmonary nodule; | | 2018 | Encounter | [facility] | Candice Han, | Asbestos exposure | | | | CT [address] | [address] | | | | | [address] | [place] [address] | | | | | [place] [address] | [phone] | | | | | [phone] | | | +--------+ + + + [...] Dr | | | | | | [place] [address] | | | | | | [phone] | | | | | | | [...] [facility] | [address] | [place] [address] | | + + + + + in this encounter Visit Diagnoses + + | Diagnosis | + + | Pulmonary nodule | + + | Solitary pulmonary nodule | + + | Asbestos exposure | + + | Personal history of contact with and (suspected) exposure to asbestos | + +"
--- OUTSIDE RECORDS SUMMARY | ~2018-03-09 | XMS | Encounter Summary ---
Demographics + + + | Address | [address] | | | [place] [address] | + + + | Home Phone | | + + + | Preferred Language | Unknown | + + + | Marital Status | | + + + | Baptism Affiliation | 1001 | + + + | Race | Unknown | + + + | Ethnic Group | Unknown | + + + Author + + + | Author | [employer]rena [employer] | + + + | Organization [...] Team Providers + +------+ + | Care Field Artillery Cannoneer Name | Role | Phone | + [...] | Radiology | Diagnoses | [place], | [facility] [address] | | | | | Pulmonary | Candice | [address] | | | | | nodule | MD [address] | [address] | | | | | Asbestos | [address] | [place] | | | | | exposure | [place] | [address] Phone: | | | | | Procedures | [place], | [phone] | | | | | CT chest | [place] [address] | | | | | | without | Phone: | | | | | | contrast | [phone] | | | | | | | Fax: | | | | | | | [phone] | | +--------+--------+ + + + + [...] | | | | | [place], | [facility] | | | | | | [place] [address] | [address] Phone: | | | | | | Phone: | [phone] | | | | | | [phone] | Fax: | | | | | | Fax: | [phone] | | | | | | [phone] | | + +--------+ + + + + Encounter Details +--------+---------+ + + + | Date | Type | Department | Care Team | Description | +--------+---------+ + + + | 01/07/ | Office | [facility] | [place]lan, | COPD, moderate (HCC) | | 2018 | Visit | Pulmonology [address] | Candice Han, | (Primary Dx); | | | | [place] | [address] | Pulmonary nodule; | | | | [place], [place] | [place] [address] | Asbestos exposure | | | | [address] | [phone] | | | | | [phone] | | | +--------+---------+ + + + [...] PM PDT3 step testing Oximetry Exercise (code) 85516 1. At rest on room air: Time:1:01pm [...] and then another 2 weeks in a chcf. He then moved to [place] with his daughter and now to [facility] to be with family. According to them, [...] concern by his new PCP here in [facility]. He apparently has orthopnea and has been sleeping in a chair for many years now. H e also wakes up with dyspnea. He has leg edema as well. He has sino nasal discharge that com es and goes. He has been started by his primary care physician on Anoro Ellipta 1 puff once a day. His f [facility] report that his breathing has become [...] second hand smoke. He grew up in [place], and also li miguel in [place] and [place]. 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 COPD, moderate (HCC) Mr Mattehws is an 82 yr old man who [...] hypertension or cardiac abnormalities. - Nebulizer (medical records field technician); Please provide Nebulizer machine, tubing, and mouthpiece. [...] get a a PET CT here in [facility], but this has not been ordered. I [...] Mercer MD Pulmonary and Critical Care Medicine [facility] [address] , [facility] [place] [address] I have spent 40 minutes with this patient, answering questions, explaining our plan and di badi approach, as well as coordinating care. in this encounter Plan of Treatment +--------+---------+ + + + | Date | Type | Specialty | Care Team | Description | +--------+---------+ + + + | 04/06/ | Office | Pulmonology | [facility], | | | 2018 | Visit | | Candice Han, | | | | | | MD [address] | | | | | | [place] [address] | | | | | | [phone] | | | | | | | [...] Performed At | + + + | [facility] CT CHEST WO CONTRAST 01/10/2018 4:40 [...] [facility] | [address] | [place] [address] | | + + + + + [...]
--- OUTSIDE RECORDS SUMMARY | ~2018-03-09 | XMS | Encounter Summary ---
Demographics + + + | Address | [address] | | | [place] [address] | + + + | Home Phone | | + + + | Preferred Language | Unknown | + + + | Marital Status | | + + + | Christianity Affiliation | 1001 | + + + | Race | Unknown | + + + | Ethnic Group | Unknown | + + + Author + + + | Author | [employer] | + + + | Organization [...] Team Providers + +------+ + | Care Strike Warfare/Missile Systems Officer Name | Role | Phone | + +------+ + | Cy Suarez MD | PCP | | + +------+ + Encounter Details +--------+ + + + + | Date | Type | Department | Care Team | Description | +--------+ + + + + | 01/17/ | Documentati | [facility] | Verito Oleary RN | | | 2018 | on Only | Pulmonology [address] | | | | | | [place] | | | | | | [place] | | | | | | [address] | | | | | | [phone] | | | +--------+ + + + [...] Dr | | | | | | [place] [address] | | | | | | [phone] | | | | | | | | +--------+---------+ + + + as of this encounter Visit Diagnoses Not on filein this encounter"
--- OUTSIDE RECORDS SUMMARY | ~2018-03-09 | XMS | Encounter Summary ---
Demographics + + + | Address | [address] | | | [place] [address] | + + + | Home Phone | | + + + | Preferred Language | Unknown | + + + | Marital Status | | + + + | Restorationism Affiliation | 1001 | + + + | Race | Unknown | + + + | Ethnic Group | Unknown | + + + Author + + + | Author | [facility]rena [employer] | + + + | Organization [...] Team Providers + +------+ + | Care Carpenter Mold Name | Role | Phone | + +------+ + | Cy Suarez MD | PCP | | + +------+ + Encounter Details +--------+ + + + + | Date | Type | Department | Care Team | Description | +--------+ + + + + | 01/24/ | Documentati | [facility] | Verito Oleary RN | | | 2018 | on Only | Pulmonology [address] | | | | | | [place] | | | | | | [place] | | | | | | [address] | | | | | | [phone] | | | +--------+ + + + [...] cmn for overnight oxygen order to [facility]. Will send results from o vernight oximetry [...] Dr | | | | | | [place] [address] | | | | | | [phone] | | | | | | | | +--------+---------+ + + + as of this encounter Visit Diagnoses Not on filein this encounter"
--- OUTSIDE RECORDS SUMMARY | ~2018-03-09 | XMS | Encounter Summary ---
Demographics + + + | Address | [address] | | | [place] [address] | + + + | Home Phone | | + + + | Preferred Language | Unknown | + + + | Marital Status | | + + + | Adventism Affiliation | 1001 | + + + | Race | Unknown | + + + | Ethnic Group | Unknown | + + + Author + + + | Author | [employer]rena [employer] | + + + | Organization [...] Team Providers + +------+ + | Care Cattle Feeder Name | Role | Phone | + +------+ + | Cy Suarez MD | PCP | | + +------+ + Reason for Visit + + + | Reason | Comments | + + + | Follow-up | PET / CT f/u | + + + Consult and Treat (Routine) + +--------+ + + + + | Status | Reason | Specialty | Diagnoses / | Referred By | Referred To | | | | | Procedures | Contact | Contact | + +--------+ + + + + | Authorized | | Pulmonology | Diagnoses | Erick, | [place], | | | | | Solitary | MD Cy | Candice | | | | | pulmonary | [address] | MD Em[address] | | | | | nodule | [address], [address] | [address] | | | | | | [address] | | | | | | | [place], | [place], [place] | | | | | | [place] [address] | [address] Phone: | | | | | | Phone: | [phone] | | | | | | [phone] | Fax: | | | | | | Fax: | [phone] | | | | | | [phone] | | + +--------+ + + + + Encounter Details +--------+---------+ + + + | Date | Type | Department | Care Team | Description | +--------+---------+ + + + | 02/02/ | Office | [facility] | Ruslan, | COPD, moderate (HCC) | | 2018 | Visit | Pulmonology [address] | Candice Han, | (Primary Dx); | | | | [place] | MD [address] | Narrowing of airway; | | | | [place], [place] | [place] [address] | Incidental | | | | [address] | [phone] | pulmonary nodule, | | | | [phone] | | greater than or | | [...] + + in this encounter Progress Notes Candice Mercer MD - 02/02/2018 3:10 PM PDTFormatting of this note may be dif ferent from the original. Subjective: Patient ID: Joshua Matthews is a 82 y.o. male with [...] and then another 2 weeks in a halfway. He then moved to [place] with his daughter and now to [facility] to be with family. According to [...] concern by his new PCP here in [facility]. He apparently has orthopnea and has been sleeping in a chair for many years now. H e also wakes up with dyspnea. He has leg edema as well. He has sino nasal discharge that com es and goes. He has been started by his primary care physician on Anoro Ellipta 1 puff once a day. His f amily members report that his breathing has become better since starting this medication. He is not on any short acting inhalers, and is not on any nebulized medications. He is not on oxygen supplementation. Interval History The patient reports the following: DYSPNEA: On minimal exertion but has improved since starting nebulized txt. Now on Pulm Yanna ab twice a week. . COUGH: Intermittent and seems related to regurgitation into lungs. ACUTE EXACERBATION: None EXPOSURES: None currently. EXERCISE: Participating in Pulm Rehab and will try to do exercises at home. ACTIVITIES OF DAILY LIVING: Needs assistance but still is able to shower and do toileting himself. CONSTITUTIONAL SYMPTOMS: Denies fevers, chills or night sweats. Has generalized fatigue at the end of a long day. SINO-NASAL SYMPTOMS: Denies. REFLUX or REGURGITATION: Has had regurgitation and reflux due to hiatal hernia. SLEEP: Now sleeping at a semi incline to prevent regurgitation. CHEST PAINS: Denies ORTHOPNEA OR PND (Paroxysmal Nocturnal Dyspnea): Denies PEDAL EDEMA: Denies OTHER SYMPTOMS: Arthralgias are present. Inhaler regimen includes: Duoneb as needed. Has not filled Brovana and Budesonide we orde red from last visit. Oxygen Use: 2LPM at night. None on exertion during the day. PAP therapy: None Other relevant medications: Famotidine. Comments: Doing better, and is participating in Pulm Rehab. PET CT without uptake on chron ically narrowed RML and RLL airways. SOCIAL HISTORY He is a never smoker but may have had second hand smoke. He grew up in [place], and also li miguel in [place] and [place]. 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, and to this [...] Lumbar transverse process fracture, closed, initial encounter (HCC) 10/16/2016 Spleen injury 10/16/2016 Nocturnal hypoxemia 01/17/2018 COPD, moderate ([facility]) 01/17/2018 Narrowing of airway 01/17/2018 Hiatal hernia 01/17/2018 Pulmonary hypertension ([facility]) 01/17/2018 Resolved Ambulatory Problems Diagnosis Date Noted No Resolved Ambulatory Problems Past Medical History: Diagnosis Date COPD (chronic obstructive pulmonary disease) ([facility]) Depression GERD (gastroesophageal reflux disease) Hiatal hernia 01/17/2018 Lung disease Past Surgical History Procedure Laterality Date APPENDECTOMY TONSILLECTOMY Objective: Physical Exam BP 132/73 (BP Location: Right upper arm, Patient Position: Sitting) | Pulse 69 | Temp 97. 5 F (36.4 C) (Oral) | Ht 1.575 m (5' 2") | Wt 65.4 kg (144 lb 3.2 oz) | SpO2 96% | B WI 26.37 kg/m Vital signs reviewed. Oxygen saturation noted at 96% on ambient air, GENERAL: stooped, pleasant, cooperative, oriented, not in distress HEENT: pink conjunctiva, anicteric sclerae, moist oral mucosae and without any lesions, nor mal appearing nasal mucosae; no JVD; MALAMPATTI 4; no thyromegaly; no cervicolymphadenopathi es; CVS: PMI non displaced, NRRR, S1 and S2, no murmurs/gallops/rubs CHEST: Examination of the chest showed a kyphosis. LUNGS: Normal effort, Equal in expansion, resonant to percussion,clear breath sounds today without adventitious sounds ABDOMEN: Slightly protuberant abdomen, NABS, non-tender on [...] 8. Additional incidental findings as detailed above. PET CT of the chest done on 01/25/18 reviewed Impression 1. 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 2. The suspected focal narrowing at the origin of the right upper lobe bronchus is not we ll-defined on CT images, without associated focal uptake. 3. Partially calcified/calcified hilar, mediastinal, distal periesophageal lymph nodes, w ith variable uptake throughout the hilar mediastinal regions, SUV up to 11.0 in the right hi lum. This is probably related to granulomatous disease. The uptake is not specific. Correlat e clinically. 4. Focal intense uptake in the posterior cecum measuring 2.2 x 1.5 cm, suspicious for cec al neoplasm. Colonoscopy is recommended. 5. Subtle left pleural effusion. 6. Moderate hiatal hernia. Assessment and Plan: 1. COPD, moderate (HCC) [...] has improved with albuterol-ipratropium nebulization TID, and I have r ecommended starting Budesonide and arformoterol or Brovana as maintenance nebulized medicati ons as inhalers have been ineffective in the past. While waiting on his maintenance nebulize d meds, I have advised that uses his Duonebs at least twice a day. He is willing to do this. I have commended him for participating in Pulm Rehab and encouraged him to continue perform ing exercises at home. 2. Narrowing of airway He has chronic narrowing of airways of the RML and RLL which I think is from chronic aspira tion. He has no evidence of malignancy currently, and this is reassuring. 3. Incidental pulmonary nodule, greater than or equal to 8mm This has remained stable in size and is most likely benign. This is reassuring. 4. Asbestos exposure He has no signs of asbestosis and he does not have any pleural plaques. 5. Nocturnal hypoxemia Continue night time O2 at 2LPM via nasal cannula. He does not have evidence of daytime hypo xemia with exertion. Monitor saturations when short of breath. 6. Hiatal hernia He has a hiatal hernia which may be contributing to dyspnea as well, since this is occupyin g his chest, and also responsible for recurrent regurgitation which have resulted in chronic narrowing of RML and RLL airways. Continue with efforts at trying to eat earlier during the evening, and not to lay down immediately after a meal. Watch out for reflux and regurgitati on. He is on Pepcid daily for this. Suggest to eat smaller, more frequent meals. Thank you for allowing us to participate in this patient's care. A return visit has been re quested/scheduled in 2 months for close clinical monitoring. The patient was instructed to c all our clinic for any questions, and for any concerns regarding worsening dyspnea, cough or change in sputum production. We will see the patient sooner than the recommended follow up date, if with any worsening of symptoms. Candice Mercer MD Pulmonary and Critical Care Medicine [facility] [address], [place] [address] in this encounter Plan of Treatment +--------+---------+ + + + | Date | Type | Specialty | Care Team | Description | +--------+---------+ + + + | 10/17/ | Office | Pulmonology | [place], | | | 2018 | Visit | | Candice Han, | | | | | | MD [address] | | | | | | [place] [address] | | | | | | [phone] | | | | | | | | +--------+---------+ + + + as of this encounter Visit Diagnoses + + | Diagnosis | + + | COPD, moderate (HCC) - Primary | + + | Chronic airway obstruction, not elsewhere classified | + + | Narrowing of airway | + + | Other diseases of respiratory system, not elsewhere classified | + + | Incidental pulmonary nodule, greater than or equal to 8mm | + + | Solitary pulmonary nodule | + + | Asbestos exposure | + + | Personal history of contact with and (suspected) exposure to asbestos | + + | Nocturnal hypoxemia | + + | Hypoxemia | + + | Hiatal hernia | + + | Diaphragmatic hernia without mention of obstruction or gangrene | + +
--- OUTSIDE RECORDS SUMMARY | ~2018-03-09 | XMS | Encounter Summary ---
Demographics + + + | Address | [address] | | | [place] [address] | + + + | Home Phone | | + + + | Preferred Language | Unknown | + + + | Marital Status | | + + + | Judaism Affiliation | 1001 | + + + | Race | Unknown | + + + | Ethnic Group | Unknown | + + + Author + + + | Author | [employer] [employer] | + + + | [...] Team Providers + +------+ + | Care Guide Dog Instructor Name | Role | Phone | + +------+ + | Cy Suaerz MD | PCP | | + +------+ + Reason for Visit +--------+ + | Reason | Comments | +--------+ + | Other | 3 step | +--------+ + Encounter Details +--------+ + + + + | Date | Type | Department | Care Team | Description | +--------+ + + + + | 01/17/ | Documentati | [facility] | Cristina Starks, | Other (3 step) | | 2018 | on Only | Pulmonology [address] | [place] | | | | | [address] | | | | | | [place] | | | | | | [address] | | | | | | [phone] | | | +--------+ + + + [...] PM PDT3 step testing Oximetry Exercise (code) 71124 1. At rest on room air: Time:12:30 [...] Dr | | | | | | [place] [address] | | | | | | [phone] | | | | | | | | +--------+---------+ + + + as of this encounter Visit Diagnoses Not on filein this encounter"
--- OUTSIDE RECORDS SUMMARY | ~2018-03-09 | XMS | Encounter Summary ---
Demographics + + + | Address | [address] | | | [place] [address] | + + + | Home Phone | | + + + | Preferred Language | Unknown | + + + | Marital Status | | + + + | Yazidi Affiliation | 1001 | + + + | Race | Unknown | + + + | Ethnic Group | Unknown | + + + Author + + + | Author | [facility]rena [employer] | + + + | Organization [...] Team Providers + +------+ + | Care Bluing Oven Tender Name | Role | Phone | [...] | | | | | [place], | [place], [place] | | | | | | [place] [address] | [address] Phone: | | | | | | Phone: | [phone] | | | | | | [phone] | Fax: | | | | | | Fax: | [phone] | | | | | | [phone] | | + +--------+ + + + + Encounter Details +--------+---------+ + + + | Date | Type | Department | Care Team | Description | +--------+---------+ + + + | 02/02/ | Office | [facility] | Ruslan, | COPD, moderate (HCC) | | 2018 | Visit | Pulmonology [address] | Candice Han, | (Primary Dx); | | | | [place] | MD [address] | Narrowing of airway; | | | | [place], [place] | [place] [address] | Incidental | | | | [address] | [phone] | pulmonary nodule, | | | | [phone] | | greater than or | | [...] and then another 2 weeks in a half-way. He then moved to [place] with his daughter and now to [facility] to be with family. According to them, [...] concern by his new PCP here in [facility]. He apparently has orthopnea and has [...] second hand smoke. He grew up in [place], and also li miguel in [place] and [place]. 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 [...] [facility]) 01/17/2018 Narrowing of airway 01/17/2018 Hiatal hernia 01/17/2018 Pulmonary hypertension ([facility]) 01/17/2018 Resolved Ambulatory Problems Diagnosis Date Noted No Resolved Ambulatory Problems Past Medical History: Diagnosis Date COPD (chronic obstructive pulmonary disease) ([facility]) Depression GERD (gastroesophageal reflux disease) Hiatal hernia 01/17/2018 Lung disease Past Surgical History Procedure Laterality Date APPENDECTOMY TONSILLECTOMY Objective: Physical Exam BP 132/73 (BP Location: Right upper arm, Patient Position: Sitting) | Pulse 69 | Temp 97. 5 F (36.4 C) (Oral) | Ht 1.575 m (5' 2") | Wt 65.4 kg (144 lb 3.2 oz) | SpO2 96% | B KS 26.37 kg/m Vital signs reviewed. Oxygen saturation [...] Mercer MD Pulmonary and Critical Care Medicine [facility] [address], [place] [address] in this encounter Plan of Treatment +--------+---------+ + + + | Date | Type | Specialty | Care Team | Description | +--------+---------+ + + + | 10/17/ | Office | Pulmonology | [place], | | | 2018 | Visit | | Candice Han, | | | | | | MD [address] | | | | | | [place] [address] | | | | | | [phone] | | | | | | | [...]
--- OUTSIDE RECORDS SUMMARY | ~2018-03-09 | XMS | Encounter Summary ---
Demographics + + + | Address | [address] | | | [place] [address] | + + + | Home Phone | | + + + | Preferred Language | Unknown | + + + | Marital Status | | + + + | Jehovah'S Witness Affiliation | 1001 | + + + | Race | Unknown | + + + | Ethnic Group | Unknown | + + + Author + + + | Author | [employer]rena [employer] | + + + | Organization [...] Team Providers + +------+ + | Care Service Station Cashier Name | Role | Phone | + +------+ + | Cy Suarez MD | PCP | | + +------+ + Encounter Details +--------+ + + + + | Date | Type | Department | Care Team | Description | +--------+ + + + + | 01/11/ | Telephone | [facility] | Verito Oleary RN | | | 2017 | | Pulmonology [address] | | | | | | [address] | | | | | | [place] | | | | | | [address] | | | | | | [phone] | | | +--------+ + + + [...] | | | | | [facility] [place] [address] | | | | | | [phone] | | | | | | | | +--------+---------+ + + + as of this encounter Visit Diagnoses Not on filein this encounter"
--- OUTSIDE RECORDS SUMMARY | ~2018-03-09 | XMS | Encounter Summary ---
Demographics + + + | Address | [address] | | | [place] [address] | + + + | Home Phone | | + + + | Preferred Language | Unknown | + + + | Marital Status | | + + + | Tenriism Affiliation | 1001 | + + + | Race | Unknown | + + + | Ethnic Group | Unknown | + + + Author + + + | Author | [employer] | + + + | Organization [...] Team Providers + +------+ + | Care Spray Cementer Name | Role | Phone | + [...] | | | | | [place], | [place], [place] | | | | | | [place] [address] | [address] Phone: | | | | | | Phone: | [phone] | | | | | | [phone] | Fax: | | | | | | Fax: | [phone] | | | | | | [phone] | | + +--------+ + + + + Encounter Details +--------+---------+ + + + | Date | Type | Department | Care Team | Description | +--------+---------+ + + + | 02/02/ | Office | [facility] | [place], | COPD, moderate (HCC) | | 2018 | Visit | Pulmonology [address] | Candice Han, | (Primary Dx); | | | | [place] | MD [address] | Narrowing of airway; | | | | [place], [place] | [place] [address] | Incidental | | | | [address] | [phone] | pulmonary nodule, | | | | [phone] | | greater than or | | [...] and then another 2 weeks in a skilled nursing. He then moved to [place] with his daughter and now to [facility] to be with family. According to [...] concern by his new PCP here in [facility]. He apparently has orthopnea and has been [...] hand smoke. He grew up in [place], and also li miguel in [place] and [place]. 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, and to this [...] injury 10/16/2016 Nocturnal hypoxemia 01/17/2018 COPD, moderate ([facility]) 01/17/2018 Narrowing of airway 01/17/2018 Hiatal hernia 01/17/2018 Pulmonary hypertension ([facility]) 01/17/2018 Resolved Ambulatory Problems Diagnosis Date Noted No Resolved Ambulatory Problems Past Medical History: Diagnosis Date COPD (chronic obstructive pulmonary disease) ([facility]) Depression GERD (gastroesophageal reflux disease) Hiatal hernia 01/17/2018 Lung disease Past Surgical History Procedure Laterality Date APPENDECTOMY TONSILLECTOMY Objective: Physical Exam BP 132/73 (BP Location: Right upper arm, Patient Position: Sitting) | Pulse 69 | Temp 97. 5 F (36.4 C) (Oral) | Ht 1.575 m (5' 2") | Wt 65.4 kg (144 lb 3.2 oz) | SpO2 96% | B PA 26.37 kg/m Vital signs reviewed. Oxygen saturation [...] Mercer MD Pulmonary and Critical Care Medicine [facility] [address], [place] [address] in this encounter Plan of Treatment +--------+---------+ + + + | Date | Type | Specialty | Care Team | Description | +--------+---------+ + + + | 10/17/ | Office | Pulmonology | [place], | | | 2018 | Visit | | Candice Han, | | | | | | MD [address] | | | | | | [place] [address] | | | | | | [phone] | | | | | | | [...]
--- OUTSIDE RECORDS SUMMARY | ~2018-03-09 | XMS | Encounter Summary ---
Demographics + + + | Address | [address] | | | [place] [address] | + + + | Home Phone | | + + + | Preferred Language | Unknown | + + + | Marital Status | | + + + | Sabianism Affiliation | 1001 | + + + | Race | Unknown | + + + | Ethnic Group | Unknown | + + + Author + + + | Author | [employer] | + + + | Organization [...] Team Providers + +------+ + | Care Hadoop Developer Name | Role | Phone | + [...] | Radiology | Diagnoses | [place], | [facility] [address] | | | | | Pulmonary | Candice | [address] | | | | | nodule | MD [address] | [address] | | | | | Asbestos | [address] | [place] | | | | | exposure | [place] | [address] Phone: | | | | | Procedures | [place], | [phone] | | | | | CT chest | [place] [address] | | | | | | without | Phone: | | | | | | contrast | [phone] | | | | | | | Fax: | | | | | | | [phone] | | +--------+--------+ + + + + [...] | | | | | [place], | [facility] | | | | | | [place] [address] | [address] Phone: | | | | | | Phone: | [phone] | | | | | | [phone] | Fax: | | | | | | Fax: | [phone] | | | | | | [phone] | | + +--------+ + + + + Encounter Details +--------+---------+ + + + | Date | Type | Department | Care Team | Description | +--------+---------+ + + + | 01/07/ | Office | [facility] | [place], | COPD, moderate (HCC) | | 2018 | Visit | Pulmonology [address] | Candice Han, | (Primary Dx); | | | | [place] | [address] | Pulmonary nodule; | | | | [place], [place] | [place] [address] | Asbestos exposure | | | | [address] | [phone] | | | | | [phone] | | | +--------+---------+ + + + [...] PM PDT3 step testing Oximetry Exercise (code) 76092 1. At rest on room air: Time:1:01pm [...] and then another 2 weeks in a residential. He then moved to [place] with his daughter and now to [facility] to be with family. According [...] concern by his new PCP here in [facility]. He apparently has orthopnea and has been sleeping in a chair for many years now. H e also wakes up with dyspnea. He has leg edema as well. He has sino nasal discharge that com es and goes. He has been started by his primary care physician on Anoro Ellipta 1 puff once a day. His f [facility] members report that his breathing has become [...] in [place], and also li miguel in [place] and [place]. 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 - Nebulizer (chief medical technologist); Please provide Nebulizer machine, tubing, and mouthpiece. [...] get a a PET CT here in [facility], but this has not been ordered. I [...] Mercer MD Pulmonary and Critical Care Medicine [facility] [address] , [place] [address] I have spent 40 minutes with this patient, answering questions, explaining our plan and di abdi approach, as well as coordinating care. in this encounter Plan of Treatment +--------+---------+ + + + | Date | Type | Specialty | Care Team | Description | +--------+---------+ + + + | 04/06/ | Office | Pulmonology | [facility], | | | 2018 | Visit | | Candice Han, | | | | | | MD [address] | | | | | | [place] [address] | | | | | | [phone] | | | | | | | [...] [facility] | [address] | [place] [address] | | + + + + + [...]
--- OUTSIDE RECORDS SUMMARY | ~2018-03-09 | XMS | Encounter Summary ---
Demographics + + + | Address | [address] | | | [place] [address] | + + + | Home Phone | | + + + | Preferred Language | Unknown | + + + | Marital Status | | + + + | Catholic Affiliation | 1001 | + + + | Race | Unknown | + + + | Ethnic Group | Unknown | + + + Author + + + | Author | [employer] | + + + | Organization [...] Team Providers + +------+ + | Care Miller Wood Flour Name | Role | Phone | + +------+ + | Cy Suarez MD | PCP | | + +------+ + Encounter Details +--------+ + + + + | Date | Type | Department | Care Team | Description | +--------+ + + + + | 01/26/ | Telephone | [facility] | Verito Oleary RN | | | 2017 | | Pulmonology [address] | | | | | | [place] | | | | | | [place] | | | | | | [address] | | | | | | [phone] | | | +--------+ + + + [...] Dr | | | | | | [facility] [address] | | | | | | [phone] | | | | | | | | +--------+---------+ + + + as of this encounter Visit Diagnoses Not on filein this encounter"
--- OUTSIDE RECORDS SUMMARY | ~2018-03-09 | XMS | Encounter Summary ---
Demographics + + + | Address | [address] | | | [place] [address] | + + + | Home Phone | | + + + | Preferred Language | Unknown | + + + | Marital Status | | + + + | Shinto Affiliation | 1001 | + + + | Race | Unknown | + + + | Ethnic Group | Unknown | + + + Author + + + | Author | [employer] | + + + | [...] Team Providers + +------+ + | Care Credit Products Officer Name | Role | Phone | + +------+ + | Cy Suarez MD | PCP | | + +------+ + Encounter Details +--------+ + + + + | Date | Type | Department | Care Team | Description | +--------+ + + + + | 01/24/ | Telephone | [facility] | Verito Oleary RN | | | 2017 | | Pulmonology [address] | | | | | | [place] | | | | | | [place] | | | | | | [address] | | | | | | [phone] | | | +--------+ + + + [...] Dr | | | | | | [facility] [address] | | | | | | [phone] | | | | | | | | +--------+---------+ + + + as of this encounter Visit Diagnoses Not on filein this encounter"
--- NOTE | 2018-03-09 19:41 | NUR ---
TELEPHONE REPORT RECEIVED FROM DES IN ED. ALL QUESTIONS ANSWERED. PATIENT TO BE TRANSFERRED TO FLOOR SOON.
--- NOTE | 2018-03-09 20:54 | NUR ---
PT ARRIVED TO FLOOR AND ADMITTED BY CHRIS HALL. THIS RN GAVE SCHEDULED MEDICATIONS. LR INFUSING AT 75 IN LFA. NEW IV PLACED IN RFA BY CHRIS HALL. DR BARONE NOTIFED OF CRITICAL LACTIC ACID LAB VALUE. HE REPORTED HE WOULD BE OVER TO SEE PATIENT SOON. SCDs IN PLACE.
--- NOTE | 2018-03-09 20:57 | NUR ---
ADMISSION COMPLETED. SCDS IN PLACE. TELE #9 PLACED ON PATIENT. PATIENTS VITALS TAKEN AND RECORDED. SECOND IV STARTED AND RECORDED. PATIENT ORIENTED TO FLOOR AND ROOM. PATIENT EDUCATED ON THE USE OF THE CALL LIGHT. ALLQUESTIONS ANSWERED. PATIENT DENIES ANY NEEDS. RN RAISA IN THE ROOM. CALL LIGHT IN REACH. BED ALARM ON FOR SAFETY.
--- NOTE | 2018-03-09 21:53 | NUR ---
2L O2 VIA NC PLACED PER MD ORDER. LR BOLUS INFUSING NOW. PT RESTING ON LEFT SIDE.
--- NOTE | 2018-03-09 23:33 | NUR ---
KAREN HALL CHECKED PATIENT'S VITAL SIGNS AT 2300. VSS. AFEBRILE.
--- NOTE | 2018-03-10 00:20 | NUR ---
PT SLEEPING ON LEFT SIDE. IVF PUMP VOLUME CLEARED.
--- NOTE | 2018-03-10 02:15 | NUR ---
PATIENT RESTING IN BED, RR IS IN 30s, O2 SATURATION IS 96% ON 2L O2 VIA NC. PATIENT DENIES FEELING SOB, NO APPARENT RESPIRATORY DISTRESS. DENIES NEEDS AT THIS TIME. CALL LIGHT WITHIN REACH.
--- NOTE | 2018-03-10 03:33 | NUR ---
PATIENT RESTING IN BED, DENIES NEEDS AT THIS TIME. PATIENT STATES THAT HE IS COMFORTABLE AND DENIES SOB. CALL LIGHT WITHIN REACH.
--- NOTE | 2018-03-10 06:32 | NUR ---
PATIENT ASSISTED TO THE RESTROOM. PATIENT IS A SBA AND DOES WELL WITH AMBULATION. PATIENT WAS ABLE TO VOID. PATIENT IS NOW BACK IN BED RESTING. NO NEEDS NOTED. CALL LIGHT IN REACH. BED ALARM ON FOR SAFETY.
--- NOTE | 2018-03-10 06:50 | NUR ---
ASSISTED PATIENT TO BEDSIDE, SBA TO VOID. NOW RESTING IN BED AGAIN. TACHYPNEA NOTED, PATIENT STATES BREATHING IS AT BASELINE FOR HIM. RR OF 20 NOTED WHILE PATIENT IS ASLEEP. DENIES FURTHER NEEDS. CALL LIGHT WITHIN REACH.
--- NOTE | 2018-03-10 07:09 | NUR ---
SHIFT REPORT RECEIVED FROM SHERIFF'S DETECTIVE RN AT BEDSIDE. PATIENT AWAKE, LAYING IN BED. LR INFUSING AT 75 MLS/HR. PATIENT APPEARS COMFORTABLE, NO OTHER REQUESTS OR NEEDS NOTED. CALL LIGHT WITHIN REACH.
--- NOTE | 2018-03-10 08:20 | NUR ---
MORNING ASSESSMENT AND ROUTINE MEDICATIONS ADMINISTERED. PATIENT TOOK MEDICATIONS WITHOUT ISSUES. PATIENT ON ROOM AIR, CURRENTLY SATTING AT 95%. PATIENT DENIES PAIN AT THIS TIME. PATIENT EATING BREAKFAST, CALL LIGHT WITHIN REACH.
--- NOTE | 2018-03-10 09:17 | NUR ---
pt is resting in bed safely. call light within reach. pt stood bedside to use urinal. pt has no needs at this time.
--- NOTE | 2018-03-10 10:00 | NUR ---
SCHEDULED IV ZOSCYN ADMINISTERD WITH NORMAL SALINE PIGGYBACK. IV SITE FLUSHED WITH 10 MLS NORMAL SALINE PRIOR TO ANTIBIOTIC INFUSION. IV SITE WNL. PATIENT WATCHING TELEVISION, DENIES PAIN AND FURTHER NEEDS. CALL LIGHT WITHIN REACH.
[2018-03-10] MEDS ORDERED: BROVANA15 MCG/2 M INH (11:38)
--- NOTE | 2018-03-10 11:50 | NUR ---
PATIENT RETURNED FROM SHOWER WITH ASSISSTANCE FROM [facility] BACK TO BED. NEW TELEMETERY STICKERS ATTACHED, TELEMETERY NUMBER NINE, RHYTHM SINUS NOTED. IV ANTIBIOTICS RESUMED. PATIENT DENIES PAIN AND SOB. NO FURTHER REQUESTS NOTED. CALL LIGHT WITHIN REACH.
--- NOTE | 2018-03-10 12:06 | NUR ---
MED REC COMPLETE
--- NOTE | 2018-03-10 12:45 | NUR ---
AFTERNOON ASSESSMENT COMPLETE. PATEITN ON ROOM AIR, DENIES PAIN AT THIS TIME.RESPIRATIONS ARE REGULAR AND SOMEWHAT LABORED. PATIENT DENIES SOB OR DYSPNEA. FRESH WATER GIVEN, CALL LIGHT WITHIN REACH.
--- NOTE | 2018-03-10 13:55 | NUR ---
pt resting in bed safely. daughter is room visiting. call light within reach.
--- NOTE | 2018-03-10 15:27 | NUR ---
SCHEDULED NYSTATIN ADMINISTERED. PATIENT DENIES PAIN. DAUGHTER IN ROOM VISITING PATIENT. CALL LIGHT WITHIN REACH.
--- NOTE | 2018-03-10 18:39 | NUR ---
PATIENT IS A/O X4. PATIENT ON ROOM AIR, BUT WEARS 2L NC AT NIGHT. VSS. LUNGS SOUNDS ARE COURSE WITH SOME SCATTERED WHEEZES. PATIENT ON VEGETARIAN REGULAR DIET. PATIENT RECEIVED IV ANTIBIOTICS EARLIER IN THE SHIFT, BUT IS NOW SALINE LOCKED. PATIENT HAS DENIED PAIN ALL SHIFT.
--- NOTE | 2018-03-10 20:00 | NUR ---
PATIENT RESTING QUIETLY IN BED AND WATCHING TV. PATIENT DENIES ANY PAIN. CALL LIGHT IN REACH.
--- NOTE | 2018-03-10 20:30 | NUR ---
CALLED HE HAD TOLD THE PATIENT HE WOULD INCREASE HER ELAVIL FOR PATIENT'S SLEEP. PATIENT'S DOSE INCREASED TO 75MG.
--- NOTE | 2018-03-10 21:08 | EKG ---
[facility] [address] [facility] [place] [address] Signed Sinus tachycardia Nonspecific ST abnormality Abnormal ECG When compared with ECG of 07-MAR-2018 11:40, Vent. rate has increased BY 50 BPM Confirmed by SERGIO BARONE DO ([id number]) on 03/10/2018 9:07:54 PM Electronically Signed By: SERGIO BARONE DO 03/10/18 2108 PATIENT NAME: JOSH SANDOVAL Electrocardiogram DATE OF : 31 PHYSICIAN: SERGIO BARONE DO REPORT #: [id number] REPORT IS CONFIDENTIAL AND NOT TO BE RELEASED WITHOUT AUTHORIZATION
--- NOTE | 2018-03-10 21:58 | NUR ---
VITALS DONE AND CHARTED. BEDSIDE TABLE AND CALL LIGHT IN REACH.
--- NOTE | 2018-03-10 22:00 | NUR ---
CALLED JUST TO INFORM HIM THE PATIENT HAD A SUSTAINED HR OF130 FOR ABOUT A MINUTE, BUT HAD NO SYMPTOMS AND WAS NOW BACK IN THE LOW 90'S TO 100'S. ORDERS ARE JUST TO MONITOR FOR NOW.
--- NOTE | 2018-03-10 23:41 | NUR ---
PATIENT CURRENTLY RESTING QUIETLY, EYES CLOSED, RESPIRATIONS EVEN AND REGULAR.
--- NOTE | 2018-03-11 00:37 | NUR ---
PATIENT RESTING QUIETLY ON HIS LEFT SIDE AND RESPIRATIONS ARE EVEN AND REGULAR WITH EYES CLOSED. LR IS RUNNING 100MLS/HR TO TRY AND INCREASE URINE OUTPUT. CALL LIGHT IS IN REACH. PATIENT DOES NOT APPEAR TO BE IN ANY DISTRESS.
--- NOTE | 2018-03-11 02:04 | NUR ---
PATIENT CONTINUES TO REST QUIETLY ON HIS LEFT SIDE, EYES CLOSED, RESPIRATIONS EVEN AND REGULAR. CALL LIGHT IN REACH. SCD'S ON.
--- NOTE | 2018-03-11 04:07 | NUR ---
PATIENT RSTING QUIETLY. HE HAS FINALLY VOIDED 180MLS. PATIENT REMAINS RESTING QUIETLY ON 2L/NC. CALL LIGHT IN REACH.
--- NOTE | 2018-03-11 05:23 | NUR ---
PATIENT HAS HAD A FAIRLY GOOD NIGHT. HAS REQUESTED NO PRN BREATHING TREATMENTS, BUT HAS BEEN OFFERED THEM. PATIENT HAS INSPIRATORY AND EXPIRATORY WHEEZES THROUGHOUT. ON 2L/NC WHILE SLEEPING . CAN USE THE URINAL OR 1PA TO THE BATHROOM. BOTH IV'S FLUSH WELL. BOWEL TONES X4. SCD'S IN PLACE. PATIENT'S URINE OUTPUT WAS DECREASED SO ORDER WAS GIVEN FROM DR. BARONE TO RUN LR AT 100MLS/HR THROUGH THE NIGHT AND PATIENT HAS VOIDED 180MLS THUS FAR. PATIENT REMAINS ON TELE WITH HR 60'S TO 100'S. DID HAVE AN EPISODE WHERE HE GOT UP TO 130 FOR A SHORT TIME BUT THIS RESOLVED AND PATIENT WAS NEVER SYMPTOMATIC AND HAS BEEN AFEBRILE.
--- NOTE | 2018-03-11 07:05 | NUR ---
RECIEVED BEDSIDE REPORT FROM ISABEL MARY. PT IN BED, AWAKE, ALERT.
--- NOTE | 2018-03-11 08:06 | NUR ---
PT HAS INSPIRATORY AND EXPIRATORY WHEEZES NOTED THROUGHOUT LUNG SHEPPARD. ON RA, OXYGEN SATURATION LEVEL 95%. RESPIRATORY RATE 24. REPORTS HEADACHE, RATES PAIN 3/10. IS EATING BREAKFAST WITHOUT ISSUE, SITTING UPRIGHT IN BED. NO S/S ASPIRATION NOTED OR REPORTED. PT ALERT, ORIENTED X 4.
--- NOTE | 2018-03-11 08:25 | NUR ---
Patient was in bed setting up eating [employer], face was washed, fresh water given. call light with in reach. no other needs at this time.
--- NOTE | 2018-03-11 09:51 | NUR ---
PT SITTING UPRIGHT IN BED, TOOK PO POTASSIUM IN WATER, TOLERATED WELL. DENIED NEEDS AT THIS TIME. OXYGEN SATURATION LEVEL 96% ON RA. PERSONAL SUPPLIES AND CALL LIGHT IN REACH.
--- NOTE | 2018-03-11 11:07 | NUR ---
Patient walked to bathroom shower was done. call light was in reach. no othere needs at this time.
--- NOTE | 2018-03-11 11:39 | NUR ---
PT SITTING UPRIGHT IN BED, EATING LUNCH. PERSONAL SUPPLIES AND CALL LIGHT IN REACH. PT DENIED NEEDS AT THIS TIME.
--- NOTE | 2018-03-11 12:15 | NUR ---
GAVE PT AND PT'S DAUGTHER DISCHARGE INSTRUCTIONS. QUESTIONS ASKED AND ANSWERED. GAVE PRINTED AND VERBAL ECUACATION. IVS D/C'D WNL.
--- NOTE | 2018-03-11 12:45 | NUR ---
DR. BARONE NOTIFIED THAT PT'S RESPIRATORY RATE AT DISCHARGE WAS 28 BREATHS PER MINUTE, DR. BARONE VERBALIZED AWARNESS, STATED THAT THIS IS PT'S BASELINE. PT'S RESPIRATORY RATE HAS BEEN 24-28 THIS SHIFT.
== END 2018-03-11 12:20 | disposition home or self-care (01) ==
LOC: ED 14:18 → MS 14:20
PROVIDERS: ADMIT Student in an Organized Health Care Education/Training Program
DX: J69.0 Pneumonitis due to inhalation of food and vomit (principal); K21.9 Gastro-esophageal reflux disease without esophagitis; K44.9 Diaphragmatic hernia without obstruction or gangrene; K29.70 Gastritis, unspecified, without bleeding; J44.9 Chronic obstructive pulmonary disease, unspecified; K63.9 Disease of intestine, unspecified; J96.11 Chronic respiratory failure with hypoxia; Z99.81 Dependence on supplemental oxygen; Z77.090 Contact with and (suspected) exposure to asbestos; Z79.51 Long term (current) use of inhaled steroids; Z79.899 Other long term (current) drug therapy
CPT/HCPCS: 36415; 71045; 71260; 74177; 80048; 80053; 81001; 83605; 83690; 83735; 85025; 92610; 93005; 93010; 94640; 96361; 96365; 96375; 96376; 97161; 99285; G0378; G8978; G8979; G8980; J1100; J2270; J2405; J2543; J7030; J7120; Q9967